=== PATIENT | female | born 2000 | race Caucasian/White ===

== ENCOUNTER 2022-09-08 18:14 | Inpatient (IN) | payer OTHER, SELFPAY ==
--- NOTE | ~2022-09-08 | CT_ITS ---
EXAMINATION: CT SOFT TISSUE NECK WITH CONTRAST CLINICAL INFORMATION: Sore throat, muffled voice, elevated white count, assess for oropharyngeal abscess COMPARISON: None. TECHNIQUE: Following the administration of 60 mL of Omnipaque 350 intravenous contrast, helical imaging was performed in the axial plane with generation of coronal and sagittal reformatted images. This CT examination was performed using dose optimization techniques as appropriate, variously including the following: *Automated exposure control. *Adjustment of mA and/or kV according to patient size (this includes techniques or standardized protocols for targeted exams where dose is matched to indication/reason for exam; i.e. extremities or head). *Use of iterative reconstruction technique. DLP: 697.47 mGy-cm FINDINGS: Suboptimal timing of contrast bolus limits assessment. There is symmetric enlargement of the bilateral palatine tonsils without heterogeneous enhancement to suggest acute tonsillitis. No peritonsillar or retropharyngeal abscess. There is also adenoidal and lingual tonsillar hyperplasia. There is mild perinodal fat stranding within the bilateral deep neck spaces. Multilevel enlarged cervical chain lymph nodes, most pronounced within the retropharyngeal and right greater than left 2A dionicio stations, with level 2A lymph nodes measuring up to 2.4 cm on the right and 2.0 cm on the left. The vocal cords are opposed at time of imaging limiting assessment of the glottis, otherwise the hypopharynx and larynx are unremarkable. The fat planes of the skull base and soft tissues of the nasopharynx are unremarkable. Moderate mucosal disease within the right sphenoid sinus with opacified right sphenoid sinus ostium and the retention cyst/polyp in the posterior most right ethmoid air cell. Mild mucosal disease within the left greater than right maxillary sinus alveolar recesses. No mastoid effusion. The temporomandibular joints are normal. Small torus palatini. The submandibular and parotid glands are normal. The thyroid gland is normal. The partially visualized lung apices are clear. Midportion of the innominate and left common carotid arteries with grossly normal contrast opacification of the major neck vessels. The osseous structures are intact without suspicious focal lesion. The imaged portions of the brain parenchyma are unremarkable. CT/CT soft tissue neck w IV con IMPRESSION: Diffuse enlargement of Waldeyer's ring tonsillar tissue, presumably reactive in the setting of underlying infection. No hyperenhancement to suggest acute tonsillitis, noting suboptimal timing of contrast bolus. No peritonsillar or retropharyngeal abscess. Multilevel cervical lymphadenopathy is presumably reactive, however recommend follow-up soft tissue ultrasound to ensure appropriate temporal resolution. There is mild perinodal fat stranding within the bilateral deep neck spaces. Moderate mucosal disease within the right sphenoid sinus with opacified right sphenoid sinus ostium and the retention cyst/polyp in the posteriormost right ethmoid air cell.
[2022-09-08 18:57] VITALS: BP 175/95; PULSE 112; RESP 18; TEMP 36.1; O2SAT 97; BMI 39.2
--- NOTE | 2022-09-08 18:57 | ED.GENADULT ---
HPI - General Adult General Chief complaint: Upper Respiratory Symptoms Stated complaint: swollen tonsils Time Seen by Provider: 09/08/22 21:04 Source: patient Mode of arrival: ambulatory Limitations: no limitations History of Present Illness HPI narrative: Patient comes to the emergency room complaining of 2 weeks of sore throat. Patient states that approximately 2 weeks ago, she was seen at Urgent Care, she was started on Augmentin. Patient completed her course of antibiotics, over last 4 days the sore throat and swelling have gotten worse. Now patient is barely able to eat or drink due to the intense pain. Patient has no difficulty handling oral secretions. No airway compromise. Also, patient developed over the last couple of days a month the papular rash. Of note, patient takes Humira weekly on Saturdays, which she uses for hidradenitis suppurativa. Patient has not taking it for the last 2 weeks due to the current or pharyngeal infection Related Data Allergies Allergy/AdvReac Type Severity Reaction Status Date / Time sulfamethoxazole Allergy Hives Verified 09/08/22 18:56 [From Bactrim] trimethoprim [From Bactrim] Allergy Hives Verified 09/08/22 18:56 Review of Systems Review of Systems: Constitutional : No Weight loss, No Fever, No Chills, No Night Sweats, No Fatigue, No Malaise ENT/Mouth : No Hearing loss, No Ear Pain, No Nasal Congestion, No Sinus Pain, No Hoarseness, complaining of sore throat, enlarged tonsils despite 10 days of Augmentin, No Rhinorrhea, No Swallowing Difficulty Eyes: No Eye Pain, No Swelling, No Redness, No Foreign Body, No Discharge, No Vision Changes Cardiovascular : No Chest Pain, No SOB, No Dyspnea on Exertion, No Orthopnea, No Edema, No Palpitations Respiratory : No Cough, No Sputum, No Wheezing, No Smoke Exposure, No Dyspnea Gastrointestinal : No Nausea, No Vomiting, No Diarrhea, No Constipation, No abdominal Pain, No Hematochezia, No Melena Genitourinary : no irregular bleeding, No Dysuria, No Urinary Frequency, No Hematuria, No Urinary Incontinence, No Urgency, No Flank Pain, No Urinary Flow Changes, No Hesitancy Musculoskeletal : No joint pain, No Myalgias, No Joint Swelling Skin : No Skin Lesions, No rash Neuro : No Weakness, No Numbness, No Paresthesias, No Loss of Consciousness, No Dizziness, No Headache Psych : No Anxiety/Panic, No Depression, No SI/HI/AH/VH, No Social Issues, Heme/Lymph: No Bruising, No Bleeding,No Lymphadenopathy Endocrine : No Polyuria, No Polydipsia, No Temperature Intolerance PMFSH Social History Social History Alcohol intake: never Smoked in Last 30 Days: No Use of substances other than those prescribed or required for medical reasons: No Advance Directives: No Advance Directives Information Provided: No Physical Exam ED Vital Signs: Vital Signs - 24 hr 09/08/22 18:57 09/08/22 21:34 09/08/22 22:43 Temperature 96.9 F 98.3 F Pulse Rate 112 H 102 H Respiratory Rate 18 19 Blood Pressure 175/95 H 155/83 H Pulse Oximetry 97 99 95 Oxygen Delivery Method Room Air Room Air BMI result Body Mass Index 39.2 Const Other: Appearance: Alert. Oriented X3. No acute distress. Eyes: Pupils equal, round and reactive to light. ENT: Pharynx large bilateral tonsils, no obvious exudates or abscess Neck: Normal inspection. Neck supple. No lymph nodes noted. No crepitus CVS: Normal heart rate and rhythm. Pulses normal. Normal S1 and S2 Respiratory: No respiratory distress. Breath sounds normal. No Wheezing. No rales Abdomen: Soft and nontender. No rigidity. No distention. Skin: Skin warm and dry. Patient has some maculopapular rash diffusely Extremities: No lower extremity edema. No Lacerations. No Rash Neuro: Oriented X 3. No motor deficit. No sensory deficit. Moving all extremities. No slurred speech. CN 2 through 12 grossly intact Psych: calm, cooperative, normal affect Course Course Course Narrative: This is an RME: Additional HPI, ROS, PE not included below will be deferred to primary provider. [id number], with a history of hidradenitis suppurativa, presenting to the emergency department with complaints of swollen tonsils, productive cough, body aches x 2 weeks. Seen by urgent care, was on amoxicillin 10 days finished on sunday/sunday and prednisone 3 days. She broke out in a diffusely intermittently itchy rash on sunday/sun of this week. She was seen by urgent care just prior to her arrival and was advised to go to the emergency department for further workup. Patient was tested for mono last week which was negative. Patient has macular rash to her right neck. Plan: Repeat strep, basic blood work, Monospot Medications Administered Discontinued Medications Generic Name Dose Route Start Last Admin Trade Name Marcos PRN Reason Stop Dose Admin Dexamethasone Sodium Phosphate 6 mg 09/08/22 21:11 09/08/22 21:30 Dexamethasone Sod Phosphate 4 Mg/Ml Vial IVPUSH 09/08/22 21:12 6 mg ONCE ONE Administration Sodium Chloride 1,000 mls @ 999 mls/hr 09/08/22 21:11 09/08/22 22:32 Ns IVCONT 09/08/22 22:11 Infused .Q1H1M ONE Infusion Clindamycin Phosphate 300 mg in 50 mls @ 100 mls/hr 09/08/22 21:11 09/08/22 22:08 Cleocin IV 09/08/22 21:40 Infused ONCE ONE Infusion Iohexol 100 ml 09/08/22 22:18 09/08/22 22:18 Iohexol 350 Mg/Ml 100 Ml Infus..Btl IV 09/08/22 22:19 60 ml ONCE ONE Administration Medical Decision Making Medical Decision Making [facility] Narrative: -patient failed outpatient treatment with amoxicillin, likely developed a rash secondary to the medication -patient's white blood cell count is 17.5, has muffled voice, we will go ahead and order a CT scan to rule out abscesses in the ER pharynx -patient a bit tachycardic, heart rate 112, no fever, patient started on IV fluids, clindamycin and Decadron IV -my interpretation of CT scan, there is narrowing of the airway. Clinically, patient has no airway compromise -I also spoke with Dr. Cespedes from [facility], patient has tonsillar hyperplasia, this could possibly be tonsillitis -patient is up-to-date with her immunizations. Since we do not have a clear diagnosis, we will go ahead and test for mumps -I discussed the CT findings with the patient, there are no drainable abscesses. However, we will admit the patient for IV antibiotics, fluids -I discussed the patient with Dr. Golden, pt being admitted Admission/Observation Consideration of admission/observation: Escalation of care including admission/observation considered Consult Healthcare Provider Management of the patient was discussed with: Hospitalist Lab Data [facility] Lab Attestation statement: I reviewed the patient's lab results. 09/08/22 19:14 09/08/22 19:14 Labs: Lab Results 09/08/22 09/08/22 09/08/22 Range/Units 19:14 19:14 19:14 WBC 17.5 H (4.8-10.8) X10*3/uL RBC 5.23 (4.20-5.50) X10*6/uL Hgb 15.0 (12.0-16.0) g/dl Hct 43.7 (37.0-47.0) % MCV 83.6 (80.0-98.0) fL MCH 28.7 (27.0-33.0) pg MCHC 34.3 (31.0-35.0) g/dl RDW 12.0 (11.0-16.0) % Plt Count 288 (160-400) X10*3/uL MPV 9.7 (9.4-12.3) fL Immature Gran % (Auto) 0.4 (0.0-0.4) % Neut % (Auto) 86.8 H (45-73) % Lymph % (Auto) 9.8 L (20-40) % [place] % (Auto) 2.4 (2-11) % Eos % (Auto) 0.3 (0-4) % Baso % (Auto) 0.3 (0-2) % Lymph # (Auto) 1.7 (1.2-4.9) X10*3/uL [place] # (Auto) 0.4 (0.1-1.2) X10*3/uL Eos # (Auto) 0.1 (0.0-0.4) X10*3/uL Baso # (Auto) 0.1 (0.0-0.2) X10*3/uL Abs Immat Gran (auto) 0.07 H (0.00-0.03) X10*3/uL Absolute Neuts (auto) 15.2 H (2.0-8.3) x10*3/uL Absolute Nucleated RBC 0.000 (0.0-0.012) X10*3/uL Nucleated RBC % (auto) 0.0 (0.0-0.2) /100WBC Sodium 140 (135-145) mmol/L Potassium 3.8 (3.3-5.1) mmol/L Chloride 108 (96-108) mmol/L Carbon Dioxide 22 (22-29) mmol/L Anion Gap 14 (12-20) BUN 12 (9-16) mg/dL Creatinine 0.92 (0.5-1.4) mg/dL Estim Creat Clear Calc 126.7 Estimated GFR > 60 Random Glucose 108 (60-115) mg/dL Calcium 9.7 (8.4-10.2) mg/dL Monoscreen (Negative) Influenza Type A (PCR) (Negative) Influenza Type B (PCR) (Negative) RSV RNA Qual (PCR) (Negative) SARS-CoV-2 RNA (RT-PCR) (Negative) S. pyogenes GrpA KAMILA Negative (Negative) 09/08/22 09/08/22 Range/Units 19:15 19:15 WBC (4.8-10.8) X10*3/uL RBC (4.20-5.50) X10*6/uL Hgb (12.0-16.0) g/dl Hct (37.0-47.0) % MCV (80.0-98.0) fL MCH (27.0-33.0) pg MCHC (31.0-35.0) g/dl RDW (11.0-16.0) % Plt Count (160-400) X10*3/uL MPV (9.4-12.3) fL Immature Gran % (Auto) (0.0-0.4) % Neut % (Auto) (45-73) % Lymph % (Auto) (20-40) % [place] % (Auto) (2-11) % Eos % (Auto) (0-4) % Baso % (Auto) (0-2) % Lymph # (Auto) (1.2-4.9) X10*3/uL [place] # (Auto) (0.1-1.2) X10*3/uL Eos # (Auto) (0.0-0.4) X10*3/uL Baso # (Auto) (0.0-0.2) X10*3/uL Abs Immat Gran (auto) (0.00-0.03) X10*3/uL Absolute Neuts (auto) (2.0-8.3) x10*3/uL Absolute Nucleated RBC (0.0-0.012) X10*3/uL Nucleated RBC % (auto) (0.0-0.2) /100WBC Sodium (135-145) mmol/L Potassium (3.3-5.1) mmol/L Chloride (96-108) mmol/L Carbon Dioxide (22-29) mmol/L Anion Gap (12-20) BUN (9-16) mg/dL Creatinine (0.5-1.4) mg/dL Estim Creat Clear Calc Estimated GFR Random Glucose (60-115) mg/dL Calcium (8.4-10.2) mg/dL Monoscreen Negative (Negative) Influenza Type A (PCR) NEGATIVE (Negative) Influenza Type B (PCR) NEGATIVE (Negative) RSV RNA Qual (PCR) NEGATIVE (Negative) SARS-CoV-2 RNA (RT-PCR) NEGATIVE (Negative) S. pyogenes GrpA KAMILA (Negative) Radiology Impression Discussion of test interpretation with radiology: I have reviewed the radiologist's reading. Radiologist Impression: FINDINGS: Suboptimal timing of contrast bolus limits assessment. There is symmetric enlargement of the bilateral palatine tonsils without heterogeneous enhancement to suggest acute tonsillitis. No peritonsillar or retropharyngeal abscess. There is also adenoidal and lingual tonsillar hyperplasia. There is mild perinodal fat stranding within the bilateral deep neck spaces. Multilevel enlarged cervical chain lymph nodes, most pronounced within the retropharyngeal and right greater than left 2A dionicio stations, with level 2A lymph nodes measuring up to 2.4 cm on the right and 2.0 cm on the left. The vocal cords are opposed at time of imaging limiting assessment of the glottis, otherwise the hypopharynx and larynx are unremarkable. The fat planes of the skull base and soft tissues of the nasopharynx are unremarkable.? Moderate mucosal disease within the right sphenoid sinus with opacified right sphenoid sinus ostium and the retention cyst/polyp in the posterior most right ethmoid air cell. Mild mucosal disease within the left greater than right maxillary sinus alveolar recesses. No mastoid effusion. The temporomandibular joints are normal. Small torus palatini. The submandibular and parotid glands are normal. The thyroid gland is normal. The partially visualized lung apices are clear. Midportion of the innominate and left common carotid arteries with grossly normal contrast opacification of the major neck vessels. The osseous structures are intact without suspicious focal lesion. The imaged portions of the brain parenchyma are unremarkable. CT/CT soft tissue neck w IV con IMPRESSION: ? Diffuse enlargement of Waldeyer's ring tonsillar tissue, presumably reactive in the setting of underlying infection. No hyperenhancement to suggest acute tonsillitis, noting suboptimal timing of contrast bolus. No peritonsillar or retropharyngeal abscess. Multilevel cervical lymphadenopathy is presumably reactive, however recommend follow-up soft tissue ultrasound to ensure appropriate temporal resolution. There is mild perinodal fat stranding within the bilateral deep neck spaces. ? Moderate mucosal disease within the right sphenoid sinus with opacified right sphenoid sinus ostium and the retention cyst/polyp in the posteriormost right ethmoid air cell. Critical Care Time Critical Care Time Critical Care Time: Yes Total Critical Care Time: 60 Attestation: I have personally provided critical care time. Time includes review of lab data, radiology results, discussion with consultants, and monitoring for potential decompensation. Intervention performed as documented. Discharge Plan Discharge Clinical Impression: Acute tonsillitis Patient Disposition: Admitted As Inpatient
[2022-09-08 19:20] LABS: MANUAL DIFF FLAG NO
[2022-09-08 19:27] LABS: Basophils Absolute Auto 0.1 X10*3/uL (0.0-0.2); Basophils Percent Auto 0.3 % (0-2); Eosinophils Absolute Auto 0.1 X10*3/uL (0.0-0.4); Eosinophils Percent Auto 0.3 % (0-4); Hematocrit 43.7 % (37.0-47.0); Imm Gran Abs Auto 0.07 X10*3/uL (0.00-0.03); Imm Gran Pct Auto 0.4 % (0.0-0.4); Lymphocytes Absolute Auto 1.7 X10*3/uL (1.2-4.9); Lymphocytes Percent Auto 9.8 % (20-40); Mean Corpuscular HGB Conc 34.3 g/dl (31.0-35.0); Mean Corpuscular Hemoglobin 28.7 pg (27.0-33.0); Mean Corpuscular Volume 83.6 fL (80.0-98.0); Mean Platelet Volume 9.7 fL (9.4-12.3); Monocytes Absolute Auto 0.4 X10*3/uL (0.1-1.2); Monocytes Percent Auto 2.4 % (2-11); Neutrophils Absolute Auto 15.2 x10*3/uL (2.0-8.3); Neutrophils Percent Auto 86.8 % (45-73); Platelet Count 288 X10*3/uL (160-400); Red Blood Count 5.23 X10*6/uL (4.20-5.50); White Blood Count 17.5 X10*3/uL (4.8-10.8)
[2022-09-08 19:34] LABS: Anion Gap 14 (12-20); Blood Urea Nitrogen 12 mg/dL (9-16); Calcium 9.7 mg/dL (8.4-10.2); Carbon Dioxide 22 mmol/L (22-29); Chloride 108 mmol/L (96-108); Creatinine Clr Calc Pharmacy 126.7; Estimated Glomerular Filt Rate > 60; Glucose Random 108 mg/dL (60-115); Potassium 3.8 mmol/L (3.3-5.1); Sodium 140 mmol/L (135-145)
[2022-09-08 19:41] LABS: Monotest Negative (Negative)
[2022-09-08 19:53] LABS: IDNOW Serial# 6674DD1D; Strep A Nucleic Acid Negative (Negative)
[2022-09-08 21:17] LABS: Influenza A PCR NEGATIVE (Negative); Influenza B PCR NEGATIVE (Negative); Resp Syncy Virus RNA Qual PCR NEGATIVE (Negative); SARS COV2 PCR INHOUSE NEGATIVE (Negative)
[2022-09-08] MEDS: Clindamycin Phosphate/D5W 300 MG/50 ML PIGGYBACK 100 MG IV (21:30)
[2022-09-08] MEDS: 0.9 % Sodium Chloride 1,000 ML 999 ML IVCONT (21:30)
[2022-09-08] MEDS: dexAMETHasone sod phosphate 4 MG/ML VIAL 6 MG IVPUSH (21:30)
[2022-09-08 21:34] VITALS: O2SAT 99
[2022-09-08] MEDS: iohexoL 350 MG/ML 100 ML INFUS..BTL IV (22:18)
[2022-09-08 22:43] VITALS: BP 155/83; PULSE 102; RESP 19; TEMP 36.8; O2SAT 95
--- NOTE | 2022-09-08 22:58 | PM.IMHP ---
History of Present Illness Date of Service: 09/08/22 Chief Complaint: Sore throat This is a 22-year-old female with pertinent history of mood disorder, hidradenitis suppurativa who presents to the emergency department for evaluation of sore throat. Patient states she started having sore throat about 2 weeks prior to presentation. It was associated with generalized body ache and malaise. Patient went to urgent care about 10 days ago and was prescribed amoxicillin. Patient completed her ten-day course of amoxicillin but continued to have sore throat. Patient states on the day of presentation, she had severe throat ache with difficulty swallowing food. She went to the urgent care again and was sent to the ER for further evaluation. Patient denies fever, chills, chest discomfort, palpitations, nausea, vomiting, shortness of breath, abdominal pain, changes in urinary or bowel habits. In the emergency department, patient was found to be septic. Review of Systems Constitutional: Constitutional: Reports lethargy and Reports malaise ENT: Reports dysphagia and Reports sore throat Cardiovascular: Cardiovascular: Reports no additional cardiovascular complaints Respiratory: Respiratory: Reports no additional respiratory complaints Gastrointestinal: Gastrointestinal: Reports no additional gastrointestinal complaints and Reports dysphagia Genitourinary: Genitourinary: Reports no additional female genitourinary complaints [facility] Medical History Hidradenitis suppurativa Mood disorder Pertinent family history: no family history of early CAD Social History Alcohol intake: never Smoked in Last 30 Days: No Use of substances other than those prescribed or required for medical reasons: No Advance Directives: No Advance Directives Information Provided: No Meds Allergies Allergy/AdvReac Type Severity Reaction Status Date / Time sulfamethoxazole Allergy Hives Verified 09/08/22 18:56 [From Bactrim] trimethoprim [From Bactrim] Allergy Hives Verified 09/08/22 18:56 Home Medications Medication Instructions Recorded Confirmed Last Taken Type sertraline 50 mg tablet 50 mg PO DAILY 09/08/22 09/08/22 09/07/22 History Physical Exam Vital Signs and Narrative: Vital Signs: Last Vital Signs Temp 98.3 F 09/08/22 22:43 Pulse 102 H 09/08/22 22:43 Resp 19 09/08/22 22:43 BP 155/83 H 09/08/22 22:43 Pulse Ox 95 09/08/22 22:43 O2 Del Method Room Air 09/08/22 22:43 BMI result Body Mass Index 39.2 Middle-aged female lying in bed in mild distress Neck supple, no JVD, swollen tonsils + Tachycardic with regular rhythm, S1-S2 heard Regular breath sounds bilaterally, no wheezing or crackles appreciated Abdomen soft nontender, no guarding, no rigidity Patient is awake, alert and oriented to self, place, time and person ; no focal motor deficit Psych: Normal mood No pedal edema Results Labs 09/08/22 19:14 09/08/22 19:14 Labs: Laboratory Results - last 24 hr 09/08/22 09/08/22 09/08/22 19:14 19:14 19:14 MCV 83.6 MCH 28.7 MCHC 34.3 RDW 12.0 Plt Count 288 MPV 9.7 Immature Gran % (Auto) 0.4 Neut % (Auto) 86.8 H Lymph % (Auto) 9.8 L [place] % (Auto) 2.4 Eos % (Auto) 0.3 Baso % (Auto) 0.3 Lymph # (Auto) 1.7 [place] # (Auto) 0.4 Eos # (Auto) 0.1 Baso # (Auto) 0.1 Abs Immat Gran (auto) 0.07 H Absolute Neuts (auto) 15.2 H Absolute Nucleated RBC 0.000 Nucleated RBC % (auto) 0.0 Anion Gap 14 Estim Creat Clear Calc 126.7 Estimated GFR > 60 Random Glucose 108 Calcium 9.7 Monoscreen Influenza Type A (PCR) Influenza Type B (PCR) RSV RNA Qual (PCR) SARS-CoV-2 RNA (RT-PCR) S. pyogenes GrpA KAMILA Negative 09/08/22 09/08/22 19:15 19:15 MCV MCH MCHC RDW Plt Count MPV Immature Gran % (Auto) Neut % (Auto) Lymph % (Auto) [place] % (Auto) Eos % (Auto) Baso % (Auto) Lymph # (Auto) [place] # (Auto) Eos # (Auto) Baso # (Auto) Abs Immat Gran (auto) Absolute Neuts (auto) Absolute Nucleated RBC Nucleated RBC % (auto) Anion Gap Estim Creat Clear Calc Estimated GFR Random Glucose Calcium Monoscreen Negative Influenza Type A (PCR) NEGATIVE Influenza Type B (PCR) NEGATIVE RSV RNA Qual (PCR) NEGATIVE SARS-CoV-2 RNA (RT-PCR) NEGATIVE S. pyogenes GrpA KAMILA Imaging Radiologist's Impressions: Impressions Soft Tissue Neck CT 09/08/22 22:19 IMPRESSION: Diffuse enlargement of Waldeyer's ring tonsillar tissue, presumably reactive in the setting of underlying infection. No hyperenhancement to suggest acute tonsillitis, noting suboptimal timing of contrast bolus. No peritonsillar or retropharyngeal abscess. Multilevel cervical lymphadenopathy is presumably reactive, however recommend follow-up soft tissue ultrasound to ensure appropriate temporal resolution. There is mild perinodal fat stranding within the bilateral deep neck spaces. Moderate mucosal disease within the right sphenoid sinus with opacified right sphenoid sinus ostium and the retention cyst/polyp in the posteriormost right ethmoid air cell. Assessment and Plan (1) Acute tonsillitis: Status: Acute Plan This is a 22-year-old female with pertinent history of mood disorder, hidradenitis suppurativa who presents to the emergency department for evaluation of sore throat. #. Sepsis due to Acute tonsillitis. Will admit patient as she failed p.o. antibiotics. Initiating empiric IV antibiotics. Resuscitated with IV crystalloids. Blood culture and lactic acid obtained. Brantley screen and strep antigen negative. MRSA nasal screen pending. No peritonsillar abscess #. mood disorder. On Zoloft #. hidradenitis suppurative a. On Humira DVT prophylaxis. None. Patient is ambulatory Full code Regular diet as tolerated Admit as inpatient and will require two night minimum hospital stay for IV antibiotics Time Spent With Patient Time: Total time managing care of this patient today ____ minutes. Quality Stroke Does the patient have a stroke diagnosis?: No VTE Prior VTE?: No VTE Risk Level:: Medical - low VTE Device Contraindication: Treatment Not Indicated VTE Drug Contraindication: Treatment Not Indicated
[2022-09-09] VITALS: BP 168/92; PULSE 98; RESP 18; TEMP 36.2; O2SAT 96
[2022-09-09 00:46] LABS: Lactic Acid 0.9 mmol/L (0.5-2.0)
[2022-09-09] MEDS: Ampicillin Sodium/Sulbactam Na 3 GM in 0.9 % Sodium Chloride 100 ML IV ×5 (00:46→22:33)
--- NOTE | 2022-09-09 01:02 | PC.NURSE ---
Received pt in ED Overflow. Pt presents A&Ox4, GCS 15, independent and ambulatory. Pt complaining of 3/10 pain in her throat/lymph nodes. Pt has a working 20g IV in her right hand, through which she was medicated per MAY. Pt was given a sandwich and water, per request. Pt has no complaints at this time.
[2022-09-09] MEDS: dexAMETHasone sod phosphate 4 MG/ML VIAL IVPUSH (01:23)
[2022-09-09] MEDS: 0.9 % Sodium Chloride Flush 3 ML SYRINGE IVFLUSH ×4 (01:24→20:52)
[2022-09-09] MEDS: traZODone HCL 25 MG HALFTAB PO (02:01)
[2022-09-09 03:21] VITALS: BMI 38.9
[2022-09-09 03:48] VITALS: BP 138/78; PULSE 96; RESP 16; TEMP 37.1; O2SAT 97
[2022-09-09 06:38] LABS: Basophils Percent Auto 0.1 % (0-2); Hematocrit 42.5 % (37.0-47.0); Hemoglobin 14.7 g/dl (12.0-16.0); Imm Gran Abs Auto 0.08 X10*3/uL (0.00-0.03); Imm Gran Pct Auto 0.6 % (0.0-0.4); Lymphocytes Percent Auto 7.7 % (20-40); MANUAL DIFF FLAG SCAN; Mean Corpuscular HGB Conc 34.6 g/dl (31.0-35.0); Mean Corpuscular Hemoglobin 29.2 pg (27.0-33.0); Mean Corpuscular Volume 84.3 fL (80.0-98.0); Mean Platelet Volume 10.1 fL (9.4-12.3); Monocytes Absolute Auto 0.1 X10*3/uL (0.1-1.2); Monocytes Percent Auto 0.6 % (2-11); Neutrophils Absolute Auto 11.9 x10*3/uL (2.0-8.3); Platelet Count 280 X10*3/uL (160-400); Red Blood Count 5.04 X10*6/uL (4.20-5.50); Red Cell Distribution Width 11.9 % (11.0-16.0); SCAN SMEAR FLAG 1; White Blood Count 13.1 X10*3/uL (4.8-10.8)
[2022-09-09 07:08] LABS: SLIDE REVIEW VERIFIED
[2022-09-09 07:19] LABS: Anion Gap 13 (12-20); Blood Urea Nitrogen 10 mg/dL (9-16); Calcium 9.7 mg/dL (8.4-10.2); Carbon Dioxide 21 mmol/L (22-29); Chloride 110 mmol/L (96-108); Creatinine Clr Calc Pharmacy 141.4; Estimated Glomerular Filt Rate > 60; Glucose Random 188 mg/dL (60-115); Potassium 4.4 mmol/L (3.3-5.1); Sodium 140 mmol/L (135-145)
[2022-09-09 08:00] VITALS: BP 128/73; PULSE 97; RESP 18; TEMP 36.1; O2SAT 96
[2022-09-09] MEDS: Sertraline HCL 50 MG TABLET PO (09:11)
--- NOTE | 2022-09-09 10:21 | PHA.MEDREC ---
Pharmacy Consult ? Medication Reconciliation Pharmacy has completed the medication reconciliation. spoke with patient. Prescribed Humira every week on Saturdays however she has not had in two weeks due to being sick and is currently on hold.
[2022-09-09 10:33] LABS: MRSA Nasal PCR NEGATIVE (Negative); SA Nasal PCR NEGATIVE (Negative)
--- NOTE | 2022-09-09 11:41 | P.PNIM_ITS ---
Subjective Subjective Date of Service: 09/09/22 Interval History: Notes improvement overnight. Able to swallow food without issue Review of Systems Denies chest pain Denies shortness of breath Denies nausea vomiting diarrhea Denies fever chills Physical Exam Vital Signs: Vital Signs: Last Vital Signs Temp 97 F 09/09/22 08:00 Pulse 97 09/09/22 08:00 Resp 18 09/09/22 08:00 BP 128/73 09/09/22 08:00 Pulse Ox 96 09/09/22 08:00 O2 Del Method Room Air 09/09/22 08:00 BMI result Body Mass Index 38.9 Const: Other: Awake alert no acute distress. Handling secretions well Resp: Other: Clear to auscultation bilaterally no rales rhonchi or wheezes Cardio: Other: No S4; positive S1-S2; no S3 murmurs rubs or gallops GI: Other: Soft nontender nondistended normoactive bowel sounds Extrem: Other: No edema bilaterally Objective Data Active Medications Acetaminophen (Acetaminophen 325 Mg Tablet) 650 mg PO Q6H PRN PRN Reason: Pain, Mild (Pain Scale 1-3) Betamethasone Dipropion Augmented (Betamethasone Dip Aug 0.05% Cr 15 Gm Tube) 1 appl TOPICAL BID [facility]; Protocol Ampicillin Sodium/Sulbactam (Sodium 3 gm/ Sodium Chloride) 100 mls @ 200 mls/hr IV Q6H [facility] Last Infusion: 09/09/22 05:08 Dose: 0 mls/hr Documented By: SHILPA Melatonin (Melatonin 3 Mg Tablet) 6 mg PO BEDTIME PRN PRN Reason: Insomnia Ondansetron HCl (Ondansetron Hcl 4 Mg/2 Ml Vial) 4 mg IVPUSH Q8H PRN PRN Reason: Nausea and Vomiting Pharmacy Consult (Consult Rx Perform Med Rec) 1 each MISCELLANE ONCE PRN PRN Reason: Consult order Sertraline HCl (Sertraline Hcl 50 Mg Tablet) 50 mg PO DAILY [facility] Last Admin: 09/09/22 09:11 Dose: 50 mg Documented By: DARIUS Sodium Chloride (0.9 % Sodium Chloride Flush 3 Ml Syringe) 3 ml IVFLUSH QSHIFT [facility] Last Admin: 09/09/22 04:38 Dose: 3 ml Documented By: SHILPA Labs 09/09/22 06:06 09/09/22 06:06 Labs: Laboratory Results - last 24 hr 09/08/22 09/08/22 09/08/22 19:14 19:14 19:14 MCV 83.6 MCH 28.7 MCHC 34.3 RDW 12.0 Plt Count 288 MPV 9.7 Immature Gran % (Auto) 0.4 Neut % (Auto) 86.8 H Lymph % (Auto) 9.8 L [place] % (Auto) 2.4 Eos % (Auto) 0.3 Baso % (Auto) 0.3 Lymph # (Auto) 1.7 [place] # (Auto) 0.4 Eos # (Auto) 0.1 Baso # (Auto) 0.1 Abs Immat Gran (auto) 0.07 H Absolute Neuts (auto) 15.2 H Absolute Nucleated RBC 0.000 Nucleated RBC % (auto) 0.0 Smear Tech's Comments Anion Gap 14 Estim Creat Clear Calc 126.7 Estimated GFR > 60 Random Glucose 108 Lactic Acid Calcium 9.7 Nasal Screen MRSA (PCR) Nasal S. aureus Screen Nasal MRSA/S.aureus Interp Monoscreen Influenza Type A (PCR) Influenza Type B (PCR) RSV RNA Qual (PCR) SARS-CoV-2 RNA (RT-PCR) S. pyogenes GrpA KAMILA Negative 09/08/22 09/08/22 09/09/22 19:15 19:15 00:30 MCV MCH MCHC RDW Plt Count MPV Immature Gran % (Auto) Neut % (Auto) Lymph % (Auto) [place] % (Auto) Eos % (Auto) Baso % (Auto) Lymph # (Auto) [place] # (Auto) Eos # (Auto) Baso # (Auto) Abs Immat Gran (auto) Absolute Neuts (auto) Absolute Nucleated RBC Nucleated RBC % (auto) Smear Tech's Comments Anion Gap Estim Creat Clear Calc Estimated GFR Random Glucose Lactic Acid 0.9 Calcium Nasal Screen MRSA (PCR) Nasal S. aureus Screen Nasal MRSA/S.aureus Interp Monoscreen Negative Influenza Type A (PCR) NEGATIVE Influenza Type B (PCR) NEGATIVE RSV RNA Qual (PCR) NEGATIVE SARS-CoV-2 RNA (RT-PCR) NEGATIVE S. pyogenes GrpA KAMILA 09/09/22 09/09/22 09/09/22 03:50 06:06 06:06 MCV 84.3 MCH 29.2 MCHC 34.6 RDW 11.9 Plt Count 280 MPV 10.1 Immature Gran % (Auto) 0.6 H Neut % (Auto) 91.0 H Lymph % (Auto) 7.7 L [place] % (Auto) 0.6 L Eos % (Auto) 0.0 Baso % (Auto) 0.1 Lymph # (Auto) 1.0 L [place] # (Auto) 0.1 Eos # (Auto) 0.0 Baso # (Auto) 0.0 Abs Immat Gran (auto) 0.08 H Absolute Neuts (auto) 11.9 H Absolute Nucleated RBC 0.000 Nucleated RBC % (auto) 0.0 Smear Tech's Comments VERIFIED Anion Gap 13 Estim Creat Clear Calc 141.4 Estimated GFR > 60 Random Glucose 188 H Lactic Acid Calcium 9.7 Nasal Screen MRSA (PCR) NEGATIVE Nasal S. aureus Screen NEGATIVE Nasal MRSA/S.aureus Interp SEE NOTE Monoscreen Influenza Type A (PCR) Influenza Type B (PCR) RSV RNA Qual (PCR) SARS-CoV-2 RNA (RT-PCR) S. pyogenes GrpA KAMILA Assessment and Plan (1) Acute tonsillitis: Status: Acute Plan This is a 22-year-old female with pertinent history of mood disorder, hidradenitis suppurativa who presents to the emergency department for evaluation of sore throat/tonsillitis that has failed outpatient therapies 1.Sepsis due to Acute tonsillitis. (sepsis resolved) -continue Unasyn times 24 hours -1 additional dose of Decadron this a.m. -hopeful DC in a.m. ambulatory Full code Patient will require ongoing hospitalization for IV antibiotics to treat tonsillitis that has failed outpatient therapies Time Spent With Patient Time: Total time managing care of this patient today ____ minutes. Quality Stroke Does the patient have a stroke diagnosis?: No VTE Prior VTE?: No VTE Risk Level:: Medical - low VTE Device Contraindication: Treatment Not Indicated VTE Drug Contraindication: Treatment Not Indicated
--- NOTE | 2022-09-09 12:13 | MHC.CM.PN ---
pt is independent no services are needed
[2022-09-09 15:22] VITALS: BP 128/70; PULSE 98; RESP 14; TEMP 36.5; O2SAT 96
[2022-09-09 19:21] VITALS: BP 134/91; PULSE 98; RESP 18; TEMP 36.3; O2SAT 98
[2022-09-09] MEDS: Betamethasone Dip Aug 0.05% Cr 15 GM TUBE 1 APPL TOPICAL (20:51)
[2022-09-09] MEDS: Melatonin 3 MG TABLET 6 MG PO (20:51)
[2022-09-10 03:28] VITALS: BP 129/88; PULSE 91; RESP 18; TEMP 36.1; O2SAT 95
[2022-09-10] MEDS: Ampicillin Sodium/Sulbactam Na 3 GM in 0.9 % Sodium Chloride 100 ML IV (04:40)
[2022-09-10] MEDS: Sertraline HCL 50 MG TABLET PO (07:42)
[2022-09-10] MEDS: 0.9 % Sodium Chloride Flush 3 ML SYRINGE IVFLUSH (07:42)
[2022-09-10] MEDS: Betamethasone Dip Aug 0.05% Cr 15 GM TUBE 1 APPL TOPICAL (07:43)
[2022-09-10 08:00] VITALS: BP 135/79; PULSE 82; RESP 18; TEMP 36.6; O2SAT 97
--- NOTE | 2022-09-10 11:12 | MHC.CM.PN ---
pt dcd home no servceis ordered by
--- NOTE | 2022-09-10 11:16 | P.DS_ITS ---
DS: Providers Provider Date of Service: 09/10/22 Date of admission: 09/08/22 22:57 Date of discharge: 09/10/22 Primary care physician: Unknown Physician DS: Diagnosis Discharge Diagnosis (1) Sepsis: Status: Acute (2) Acute tonsillitis: Status: Acute DS: Summary Hospital Course Hospital Course: 2-year-old female with pertinent history of mood disorder, hidradenitis suppurativa who presents to the emergency department for evaluation of sore throat.? Patient states she started having sore throat about 2 weeks prior to presentation.? It was associated with generalized body ache and malaise.? Patient went to urgent care about 10 days ago and was prescribed amoxicillin.? Patient completed her ten-day course of amoxicillin but continued to have sore throat.? Patient states on the day of presentation, she had severe throat ache with difficulty swallowing food.? She went to the urgent care again and was sent to the ER for further evaluation.? Patient denies fever, chills, chest discomfort, palpitations, nausea, vomiting, shortness of breath, abdominal pain, changes in urinary or bowel habits. Hospital Course Admitted to hospital and started on Unasyn. Received 2 doses of Decadron and over the next 48 hours was tolerating a full diet without complaints of sore throat. At this point time she is medically acceptable discharged on a short course of Augmentin as well as a Decadron taper. She will arrange follow-up the PCP can follow-up at times Time Spent with Patient Time attestation: Total time managing care of this patient today ____ minutes. Discharge coordination time: Greater than 30 minutes Quality: Safe Use of Opioids Does Pt have an Active Cancer Diagnosis on the Problem List?: No Quality: Stroke Does the patient have a stroke diagnosis?: No Physical Exam Vital Signs: Vital Signs: Last Vital Signs Temp 97.9 F 09/10/22 08:00 Pulse 82 09/10/22 08:00 Resp 18 09/10/22 08:00 BP 135/79 09/10/22 08:00 Pulse Ox 97 09/10/22 08:00 O2 Del Method Room Air 09/10/22 08:00 BMI result Body Mass Index 38.9 Const: Other: Awake alert no acute distress. Handling secretions well Resp: Other: Clear to auscultation bilaterally no rales rhonchi or wheezes Cardio: Other: No S4; positive S1-S2; no S3 murmurs rubs or gallops GI: Other: Soft nontender nondistended normoactive bowel sounds Extrem: Other: No edema bilaterally DS: Data Data Completed and Pending Labs on day of discharge: Preliminary micro results at discharge 09/09/22 01:23 Blood Culture - Preliminary Blood - Venous No growth after 24 hours. 09/09/22 01:23 Blood Culture - Preliminary Blood - Venous No growth after 24 hours. Discharge Plan Discharge Anticipated Discharge Date/Time: 09/10/22 10:59 Patient Disposition: Home, Self-Care Discharge Diagnosis: Acute tonsillitis Referrals: Physician,Unknown J [Primary Care Provider] - 1 Week Discharge Medications: New amoxicillin-pot clavulanate 875-125 mg tablet 1 tab PO BID Qty: 14 0RF dexamethasone 1.5 mg tablet 1.5 mg PO DAILY Qty: 18 0RF Rx Instructions: One tab p.o. t.i.d. x3 days; 1 tab p.o. b.i.d. x3 days; 1 tab daily fluconazole [Diflucan] 150 mg tablet 150 mg PO Q3D Qty: 2 0RF Continued sertraline 50 mg tablet 50 mg PO DAILY cetirizine-pseudoephedrine [Zyrtec-D] 5-120 mg Tablet Extended Release 12 Hr 1 tab PO Q12H PRN (Reason: Allergy Symptoms) fluticasone propionate 50 mcg/actuation [place],Suspension 1 spray INTRANASAL DAILY PRN (Reason: Allergy Symptoms) Rx Instructions: administer into each nostril Humira(CF) 40 mg/0.4 mL Syringe Kit 40 mg SUBCUT SA Rx Instructions: saturdays Discharge Orders: Discharge Order (Routine); Ordered 09/10/22 Ordered By: Tony Felipe Diet: Advance to usual diet Activity on Discharge: As tolerated Stand Alone Forms: Patient Portal Discharge page, Work/School Release Care Plan Goals: Complete course of Augmentin/Decadron/Diflucan (if indicated) Health Concerns: Work note to return 09/18/22 Plan of Treatment: Resume all medicines as taking pre-hospital Assessment: See discharge summary
[2022-09-16 18:08] LABS: Mumps Virus IgM Antibody <1:20 titer
== END 2022-09-10 11:37 | disposition home or self-care (01) | DRG 720 ==
LOC: HO.ED 23:14 → HO.EDOVER 23:25 → HO.S3 09-09 03:05
PROVIDERS: Physician Assistant Medical; Admitting Provider Student in an Organized Health Care Education/Training Program; Emergency Provider Emergency Medicine; Visit Provider Hospitalist
DX: A41.9 Sepsis, unspecified organism (principal); F39 Unspecified mood [affective] disorder; J03.90 Acute tonsillitis, unspecified; L73.2 Hidradenitis suppurativa; Z20.822 Contact with and (suspected) exposure to COVID-19; Z79.51 Long term (current) use of inhaled steroids; Z79.899 Other long term (current) drug therapy
CPT/HCPCS: 0241U; 36415; 70491; 80048; 83605; 85025; 86308; 86735; 87040; 87640; 87641; 87651; 99285; J0295; J1100; Q9967

== ENCOUNTER 2022-10-03 08:52 | Emergency (ER) | payer OTHER, SELFPAY ==
[2022-10-03 08:53] VITALS: BP 152/107; PULSE 106; RESP 18; TEMP 36.6; O2SAT 98; BMI 38.0
--- NOTE | 2022-10-03 09:32 | ED.GENADULT ---
HPI - General Adult General Chief complaint: General Medical Stated complaint: Swollen tonsils Time Seen by Provider: 10/03/22 09:31 Source: patient Mode of arrival: ambulatory Limitations: no limitations History of Present Illness HPI narrative: 22 yo female with history of recent admission to [facility] 09/08-09/10 for acute tonsillitis (strep, mono, mumps negative at that time) s/p multiple courses of antibtioics since July who presents to the ER for evaluation of worsening sore throat for the last couple of weeks. She states after discharge she completed a course of antibiotics and steroids. She was feeling well for a week after discharge. She saw ENT in [place] during this time and was found to be positive for Viral Capsid IgG of 104, c/w Fern F[place]ardo Virus. She reports history of mononucleosis at age 15. About a week after stopping the steroids she began having worsening symptoms. She has had a hard time swallowing and her voice is muffled again. She has been taking motrin and tylenol around the clock. She feels dehydrated because she can't drink enough due to pain. She denies fever, chills, N/V/D, chest pain or abdominal pain. MD complaint: sore throat Onset (ago): week(s) Location: mouth and neck Radiation: neck Severity: moderate Severity scale (1-10): 7 Quality: stabbing and aching Pain Consistency: constant Relieving factors: medication Exacerbating factors: eating Associated symptoms: loss of appetite, malaise and weakness Treatments prior to arrival: none Related Data Home Medications Medication Instructions Recorded Confirmed sertraline 50 mg tablet 50 mg PO DAILY 09/08/22 09/08/22 adalimumab 40 mg/0.4 mL 40 mg subcut SA 09/09/22 09/09/22 subcutaneous syringe kit ([place](CF)) cetirizine 5 mg-pseudoephedrine ER 1 tab PO Q12H PRN Allergy Symptoms 09/09/22 09/09/22 120 mg tablet,extended release,12hr (Zyrtec-D) fluticasone propionate 50 1 spray intranasal DAILY PRN 09/09/22 09/09/22 mcg/actuation nasal Allergy Symptoms spray,suspension Previous Rx's Medication Instructions Recorded amoxicillin 875 mg-potassium 1 tab PO BID #14 tabs 09/10/22 clavulanate 125 mg tablet dexamethasone 1.5 mg tablet 1.5 mg PO DAILY #18 tabs 09/10/22 fluconazole 150 mg tablet 150 mg PO Q3D 2 doses #2 tabs 09/10/22 (Diflucan) prednisone 10 mg tablets in a dose See Taper PO DAILY #48 ea 10/03/22 pack Allergies Allergy/AdvReac Type Severity Reaction Status Date / Time sulfamethoxazole Allergy Hives Verified 09/08/22 18:56 [From Bactrim] trimethoprim [From Bactrim] Allergy Hives Verified 09/08/22 18:56 Review of Systems Review of Systems: Yes all other systems are reviewed and are negative [facility] Past Medical History Medical History Hidradenitis suppurativa Mood disorder Social History Social History Household Members: Significant Other Housing: House Do you presently have visiting nurse or other home services: No Alcohol intake: never Patient Tobacco Use Status: Never used Tobacco Smoked in Last 30 Days: No Use of substances other than those prescribed or required for medical reasons: No Advance Directives: No Advance Directives Information Provided: Yes Patient : No service: No Physical Exam ED Vital Signs: Vital Signs - 24 hr 10/03/22 08:53 10/03/22 10:00 Temperature 98 F 98.7 F Pulse Rate 106 H 103 H Respiratory Rate 18 16 Blood Pressure 152/107 H 147/75 H Pulse Oximetry 98 98 Oxygen Delivery Method Room Air Room Air BMI result Body Mass Index 38.0 Appearance: Alert. Oriented X3. No acute distress. Head: normocephalic, atraumatic. Eyes: Pupils equal, round and reactive to light. ENT: Pharynx with moist mucus membranes. + tonsillar swelling bilaterally, mild erythema without exudate, uvula midline. slightly muffled voice, handling secretions normally. Neck: Normal inspection. Neck with bilateral tenderness submandibularly CVS: Normal heart rate and rhythm. Pulses normal. Respiratory: No respiratory distress. Breath sounds normal. Abdomen: Soft and nontender. +BS x4 Skin: Skin warm and dry. Normal skin color. Normal skin turgor. No rashes. Extremities: No lower extremity edema. No joint swelling. Neuro/psych: Oriented X 3. No motor deficit. No sensory deficit. CN II-XII intact. Normal speech and cognition. Medications Administered Discontinued Medications Generic Name Dose Route Start Last Admin Trade Name Marcos PRN Reason Stop Dose Admin Dexamethasone Sodium Phosphate 8 mg 10/03/22 09:42 10/03/22 10:37 Dexamethasone Sod Phosphate 4 Mg/Ml Vial IVPUSH 10/03/22 09:43 8 mg ONCE ONE Administration Sodium Chloride 1,000 mls @ 999 mls/hr 10/03/22 09:45 10/03/22 11:40 Ns IV 10/03/22 10:45 Infused .Q1H1M JUAN Infusion Ketorolac Tromethamine 30 mg 10/03/22 09:42 10/03/22 10:37 Ketorolac Tromethamine 30 Mg/Ml Vial IVPUSH 10/03/22 09:43 30 mg ONCE ONE Administration Medical Decision Making Medical Decision Making MDM Narrative: 22 yo female with recent admission for tonsillitis presents back to the ER for evaluation of sore throat and difficulty swallowing for the last couple of weeks, after she completed a course of steroids. Her tonsils are equally enlarged. Her uvula is midline. She is handling her secretions normally. Her outpatient labs are reviewed. Her IgG G antibody is consistent with acute infection within 2-4 weeks. Her lab workup today showed mild leukocytosis and elevated inflammatory markers c/w viral infection. She was given toradol and decadron with improvement in pain. She is tolerating PO in the ER. Case was d/w Dr. Thornton. Will defer repeat CT soft tissue of the neck viral viral etiology and low suspicion for bacterial abscess. Patient will follow up with ENT and will d/c her on prednisone taper. Stable for d/c and patient agrees w/ plan. Differential Diagnosis Differential Diagnoses: The differential diagnosis associated with the presentation includes viral tonsillitis, peritonsillar abscess, retropharyngeal abscess, strep pharyngitis Admission/Observation Consideration of admission/observation: Escalation of care including admission/observation considered repeat visit for trouble swallowing/tonsillitis. Lab Data [facility] Lab Attestation statement: I reviewed the patient's lab results. mild lleukocytosis 10/03/22 11:08 10/03/22 11:07 Labs: Lab Results 07/04/23 07/04/23 07/04/23 Range/Units 11:07 11:07 11:07 WBC (4.8-10.8) X10*3/uL RBC (4.20-5.50) X10*6/uL Hgb (12.0-16.0) g/dl Hct (37.0-47.0) % MCV (80.0-98.0) fL MCH (27.0-33.0) pg MCHC (31.0-35.0) g/dl RDW (11.0-16.0) % Plt Count (160-400) X10*3/uL MPV (9.4-12.3) fL Immature Gran % (Auto) (0.0-0.4) % Neut % (Auto) (45-73) % Lymph % (Auto) (20-40) % [place] % (Auto) (2-11) % Eos % (Auto) (0-4) % Baso % (Auto) (0-2) % Lymph # (Auto) (1.2-4.9) X10*3/uL [place] # (Auto) (0.1-1.2) X10*3/uL Eos # (Auto) (0.0-0.4) X10*3/uL Baso # (Auto) (0.0-0.2) X10*3/uL Abs Immat Gran (auto) (0.00-0.03) X10*3/uL Absolute Neuts (auto) (2.0-8.3) x10*3/uL Absolute Nucleated RBC (0.0-0.012) X10*3/uL Nucleated RBC % (auto) (0.0-0.2) /100WBC ESR 64 H (0-20) MM/HR Sodium 144 (135-145) mmol/L Potassium 4.1 (3.3-5.1) mmol/L Chloride 111 H (96-108) mmol/L Carbon Dioxide 22 (22-29) mmol/L Anion Gap 15 (12-20) BUN 8 L (9-16) mg/dL Creatinine 0.83 (0.5-1.4) mg/dL Estim Creat Clear Calc 138.0 Estimated GFR > 60 Random Glucose 84 (60-115) mg/dL Calcium 9.8 (8.4-10.2) mg/dL Magnesium 2.1 (1.6-2.6) mg/dL Total Bilirubin 0.8 (0.0-1.0) mg/dL Direct Bilirubin 0.2 (0.0-0.5) mg/dL AST 14 (5-31) U/L ALT 22 (0-31) U/L Alkaline Phosphatase 84 (39-117) U/L C-Reactive Protein 16.83 H (< or = 0.50) mg/dL Total Protein 7.7 (6.5-8.0) g/dL Albumin 4.0 (3.5-5.0) g/dL S. pyogenes GrpA KAMILA Negative (Negative) 10/03/22 Range/Units 11:08 WBC 11.0 H (4.8-10.8) X10*3/uL RBC 4.84 (4.20-5.50) X10*6/uL Hgb 14.2 (12.0-16.0) g/dl Hct 41.5 (37.0-47.0) % MCV 85.7 (80.0-98.0) fL MCH 29.3 (27.0-33.0) pg MCHC 34.2 (31.0-35.0) g/dl RDW 12.7 (11.0-16.0) % Plt Count 205 D (160-400) X10*3/uL MPV 9.4 (9.4-12.3) fL Immature Gran % (Auto) 0.3 (0.0-0.4) % Neut % (Auto) 72.5 (45-73) % Lymph % (Auto) 17.0 L (20-40) % [place] % (Auto) 8.3 (2-11) % Eos % (Auto) 1.5 (0-4) % Baso % (Auto) 0.4 (0-2) % Lymph # (Auto) 1.9 (1.2-4.9) X10*3/uL [place] # (Auto) 0.9 (0.1-1.2) X10*3/uL Eos # (Auto) 0.2 (0.0-0.4) X10*3/uL Baso # (Auto) 0.0 (0.0-0.2) X10*3/uL Abs Immat Gran (auto) 0.03 (0.00-0.03) X10*3/uL Absolute Neuts (auto) 8.0 (2.0-8.3) x10*3/uL Absolute Nucleated RBC 0.000 (0.0-0.012) X10*3/uL Nucleated RBC % (auto) 0.0 (0.0-0.2) /100WBC ESR (0-20) MM/HR Sodium (135-145) mmol/L Potassium (3.3-5.1) mmol/L Chloride (96-108) mmol/L Carbon Dioxide (22-29) mmol/L Anion Gap (12-20) BUN (9-16) mg/dL Creatinine (0.5-1.4) mg/dL Estim Creat Clear Calc Estimated GFR Random Glucose (60-115) mg/dL Calcium (8.4-10.2) mg/dL Magnesium (1.6-2.6) mg/dL Total Bilirubin (0.0-1.0) mg/dL Direct Bilirubin (0.0-0.5) mg/dL AST (5-31) U/L ALT (0-31) U/L Alkaline Phosphatase (39-117) U/L C-Reactive Protein (< or = 0.50) mg/dL Total Protein (6.5-8.0) g/dL Albumin (3.5-5.0) g/dL S. pyogenes GrpA KAMILA (Negative) Independent Historian Clinical information obtained from an independent historian. History obtained from or confirmed by: Parent External Record Review External record reviewed: Inpatient record, Office record, Outpatient record and Prior outpatient labs Tests considered The following testing was considered but not selected: CT soft tissue of the neck Prescription Management I considered prescription management with: Pain Medication and Antibiotic Discharge Plan Discharge Clinical Impression: Acute tonsillitis Patient Disposition: Home, Self-Care Instructions: Tonsillitis (ED) Additional Instructions: Take the prescribed steroid taper as directed. Complete the entire course and do not miss any doses. Use warm salt water gargles several times per day. Recommend Chloraseptic spray or Cepacol lozenges as needed for sore throat. Follow up with ENT. If you develop new or worsening symptoms call 911 or come back to the ER for further evaluation. Prescriptions: New prednisone 10 mg tablets,dose pack See Taper PO DAILY Qty: 48 0RF Taper: Prednisone 50 mg daily for 3 Days and 0 Hour 40 mg daily for 3 Days and 0 Hour 30 mg daily for 3 Days and 0 Hour 20 mg daily for 3 Days and 0 Hour 10 mg daily for 3 Days and 0 Hour No Action sertraline 50 mg tablet 50 mg PO DAILY cetirizine-pseudoephedrine [Zyrtec-D] 5-120 mg Tablet Extended Release 12 Hr 1 tab PO Q12H PRN (Reason: Allergy Symptoms) fluticasone propionate 50 mcg/actuation [place],Suspension 1 spray INTRANASAL DAILY PRN (Reason: Allergy Symptoms) Rx Instructions: administer into each nostril Humira(CF) 40 mg/0.4 mL Syringe Kit 40 mg SUBCUT SA Rx Instructions: saturdays amoxicillin-pot clavulanate 875-125 mg tablet 1 tab PO BID Qty: 14 0RF dexamethasone 1.5 mg tablet 1.5 mg PO DAILY Qty: 18 0RF Rx Instructions: One tab p.o. t.i.d. x3 days; 1 tab p.o. b.i.d. x3 days; 1 tab daily fluconazole [Diflucan] 150 mg tablet 150 mg PO Q3D Qty: 2 0RF Referrals: Siomara Solorzano CNP [Primary Care Provider] - Stand Alone Forms: Work/School Release Interventions: ED Discharge Assessment Last Done: 10/03/22 12:40 Discharge Date/Time: 10/03/22 12:41
[2022-10-03 10:00] VITALS: BP 147/75; PULSE 103; RESP 16; TEMP 37.1; O2SAT 98
== END 2022-10-03 12:41 | disposition home or self-care (01) ==
PROVIDERS: Emergency Provider Emergency Medicine Emergency Medical Services; PCP Nurse Practitioner Family
DX: J03.90 Acute tonsillitis, unspecified (principal)
CPT/HCPCS: 80048; 80076; 83735; 85025; 85652; 86140; 87651; 96361; 96374; 96375; 99284; J1100; J1885

== ENCOUNTER 2022-11-03 11:03 | Outpatient (AMB) | payer OTHER, SELFPAY ==
--- NOTE | 2022-11-03 11:07 | MHC.PC.OV ---
Vital Signs 11/03/22 11:10 Height 5 ft 8 in Weight 260 lb BMI 39.5 BP 130/74 Blood Pressure Location Rt brachial Position Sitting Pulse 110 H Pulse Source Pulse Oximeter Pulse Oximetry (%) 98 Intake Visit Reasons: New patient-Skin condition Intake Note: pt is here for new patient, to establish care and concern skin cond Hair Cutter Required: No Accompanied by: Self / Same As Patient Allergies sulfamethoxazole [From Bactrim] Allergy (Verified 11/03/22 11:44) Hives trimethoprim [From Bactrim] Allergy (Verified 11/03/22 11:44) Hives Tobacco use date assessed: 11/03/22 Dental Screening Dental Screen Date: 11/03/22 Did you have a dental visit in the last 12 months?: No Did you have a dental problem in the last 6 months where you did not have access to dental care?: No Was dental information given to patient?: Yes HPI HPI Comments History of Present Illness Details 22-year-old female presents to establish care She was last evaluated by her former PCP over a year ago. She has not had routine blood work in a while She reports h/o anxiety for which she was on Sertraline. She stopped taking the medication 1 month ago because it was not effective. She denies h/o depression. However, she notes symptoms of low energy, low self worth, easily irritable, and trouble staying asleep. She was followed by a psychiatrist via telehealth. He stopped the visits because she did not feel connected. She reports hydradenitis suppurativa for which she takes Humira. She states the rash usually occur in her armpits, groins, genitals, and buttocks. She currently has two small rash in her left armpit. She is followed by Dematology in [place]. She notes she was hospitalized in August for 2 days for mono. CBC was done. [facility] Medical History (Updated 11/03/22 @ 12:05 by Siomara Solorzano CNP) Hidradenitis suppurativa Mood disorder Surgical History (Updated 11/03/22 @ 11:13 by Ben Martinez CMA) S/P wisdom tooth extraction Family History (Updated 11/03/22 @ 11:15 by Ben Martinez CMA) Father Substance abuse Mother Hypothyroidism Social History (Updated 11/03/22 @ 11:15 by Ben Martinez CMA) Household Members: Significant Other Housing: House Do you presently have visiting nurse or other home services: No Alcohol intake: current Alcohol intake frequency: a few times a month Alcohol type: beer Patient Tobacco Use Status: Never used Tobacco e-Cigarette/Vaping Use: Never Used service: No Current occupational status: employed 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 1. Little interest or pleasure in doing things: several days 2. Feeling down, depressed, or hopeless: several days 3. Trouble falling or staying asleep, or sleeping too much: nearly every day 4. Feeling tired or having little energy: nearly every day 5. Poor appetite or overeating: nearly every day 6. Feeling bad about yourself - or that you are a failure or have let yourself or your family down: several days 7. Trouble concentrating on things, such as reading the newspaper or watching television: not at all 8. Moving or speaking so slowly that other people could have noticed. Or the opposite - being so fidgety or restless that you have been moving around a lot more than usual: not at all 9. Thoughts that you would be better off or of hurting yourself in some way: not at all Total score: 12 Depression Screening Interpretation: Positive 21493 - PHQ-9 Billing: Yes Source: Developed by Drs. Franck Chandler, Meeta Maldonado, Nitin Ordoñez and colleagues, with an educational eugenio from [employer]. Thrive Questionnaire Date Thrive assessed: 11/03/22 I am a: Patient What is your living situation today?: I choose not to answer this question Within the past 12 months, did the food you bought not last and you didn't have the money to get more?: Never true Within the past 12 months, did you worry whether your food would run out before you got money to buy more?: Never true Do you have trouble paying for medicines?: No Do you have trouble getting transportation to medical appointments?: No Do you have trouble paying your heating and electricity bill?: No Do you have trouble taking care of your child, family member or friend?: No Do you have trouble with day-to-day activities such as bathing, preparing meals, shopping, managing finances, etc.?: No Are you currently unemployed and looking for a job?: No Are you interested in more education?: No Please select the resources that you would like help with: None Currently or been in a relationship where the following occur: no concerns reported AUDIT C Alcohol Use Questionnaire (AUDIT-C) 1. How often do you have a drink containing alcohol?: 2-4 times a month 2. How many drinks containing alcohol do you have on a typical day when you are drinking?: 1 or 2 3. How often do you have six or more drinks on one occasion?: Never Total Score: 2 ISABEL-7 AMB Questionnaire ISABEL-7 Date ISABEL - 7 assessed: 11/03/22 Feeling nervous, anxious, or on edge: 2 = More than half the days Not being able to stop or control worryin = More than half the days Worrying too much about different things: 2 = More than half the days Trouble relaxin = More than half the days Being so restless that it is hard to sit still: 1 = Several days Becoming easily annoyed or irritable: 3 = Nearly every day Feeling afraid as if something awful might happen: 1 = Several days Total ISABEL-7 score (0-4 normal; 5-9 mild; 10-14 moderate; 15-21 severe): 13 Source: Developed by Drs. Franck Chandler, Meeta Maldonado, Nitin Ordoñez and colleagues, with an educational eugenio from [employer]. ISABEL-7 Assessment Billing ISABEL-7 Assessment Tool: ISABEL-7 Assessment 89852 Review of Systems Const Details: Const Denies chills, Denies fatigue, Denies fever(s), Denies headache(s) and Denies weakness ENT Denies dizziness and Denies headache(s) Card Denies chest pain, Denies lightheadedness, Denies dyspnea and Denies other (Palpitations) Resp Denies cough, Denies dyspnea, Denies wheezing and Denies other ( shortness of breath) GI Denies abdominal pain, Denies melena, Denies hematochezia, Denies change in bowel habits, Denies dyspepsia and Denies nausea Denies hematuria and Denies dysuria Musc Denies abnormal gait, Denies myalgias, Denies arthralgias, Denies numbness and Denies tingling Skin/Breast Reports rash, Denies unusual bruising and Denies wounds Neuro Denies abnormal gait, Denies dizziness, Denies headache(s), Denies memory loss, Denies numbness, Denies Sensory deficit (Neuro), Denies tingling and Denies weakness Psych Reports anxiety and Reports depression, denies memory loss Endo Denies cold intolerance, Denies fatigue, Denies heat intolerance, Denies polydipsia and Denies polyuria Aller/Immun Denies wheezing Physical exam (Primary Care) Vital Signs: Last Vital Signs Pulse 110 H 11/03/22 11:10 BP 130/74 11/03/22 11:10 Pulse Ox 98 11/03/22 11:10 BMI result Body Mass Index 39.5 Tobacco/Smoking Status: Tobacco use Status Tobacco use date assessed 11/03/22 11/03/22 11:21 Patient Tobacco Use Status Never used Tobacco 11/03/22 11:15 e-Cigarette/Vaping Use Never Used 11/03/22 11:21 PHQ-9: PHQ-9 Score PHQ-9: Total score 12 11/03/22 11:57 Depression Screening Interpretation: Positive Thrive Assessment: Date of Thrive Assessment Date Thrive assessed 11/03/22 11/03/22 11:21 Currently or been in a relationship where the following occur: no concerns reported Const Other: General: no acute distress and well developed Nutritional Appearance: well nourished Orientation/consciousness: patient oriented x3 HENMT Head: Yes normocephalic and Yes atraumatic Eyes General: appearance normal, both eyes and all related structures Pupils: Equal, round and reactive pupils present EOM: EOMs intact bilaterally Resp Effort & Inspection: normal respiratory effort Auscultation: clear to auscultation bilaterally Cardio Rate: regular rate Rhythm: regular rhythm Heart sounds: S1 normal heart sound present, S2 normal heart sound present, no gallops, no murmurs and no rubs GI Palpation (GI): No Abdominal aortic bruit present, Soft to palpation, nontender, No hepatosplenomegaly present and No Rebound tenderness present Auscultation: normal bowel sounds General: Yes no CVA tenderness Back/Spine/Pelvis Back: no CVA tenderness Cervical Spine: cervical ROM normal and No Cervical spine tenderness Thoracic/Lumbar Spine: thoraco-lumbar ROM normal, No pain with thoraco-lumbar ROM, No thoracic spinal tenderness and No lumbar spinal tenderness Extrem General: Yes normal to inspection, No edema and No calf tenderness Skin General: warm and dry. Normal skin color. Normal skin turgor Lesions: no lesions Rashes: Two, small raised rash noted to the left upper chest proximal to the axilla, no drainage or overt infection Trauma: no lacerations or abrasions Wounds: no wounds Nails: normal Neuro General: patient oriented x3, gait normal and no focal neuro deficit Cranial nerves: Yes Equal, round and reactive pupils present Cognition (Neuro): normal cognition Gait exam (Neuro): Normal gait present Motor exam (neuro): 5/5 motor strength present throughout Sensory Exam: No Sensory deficit (Neuro) Deep tendon reflexes (DTR's): Right patellar reflex intensity grade: 2+ and Left patellar reflex intensity grade: 2+ Psych Appearance: grossly normal Affect: normal affect Attitude: cooperative Thought process: Normal thought process present Assessment and Plan Assessment & Plan (1) Anxiety and depression: Code(s): F41.9 - Anxiety disorder, unspecified; F32.A - Depression, unspecified Plan: PHQ-9 and ISABEL-7 scores revealed moderate depression and anxiety Fluoxetine ordered. Take as prescribed Routine exercise encouraged Referral made to the community navigator to assist the patient connect to a therapist Follow-up in 1 month or return sooner with worsening or new symptoms Verbalized understanding and agreed with treatment plan (2) Hidradenitis suppurativa: Code(s): L73.2 - Hidradenitis suppurativa Plan: Reports hydradenitis suppurativa for which she takes Humira. She states the rash usually occur in her armpits, groins, genitals, and buttocks. She currently has two small rash in her left armpit. Two, small raised rash noted to the left upper chest proximal to the axilla, no drainage or overt infection Continue to follow Dermatology as planned Return with worsening or new signs and symptoms Verbalized understanding and agreed with treatment plan. (3) Laboratory tests ordered as part of a complete physical exam (CPE): Code(s): Z00.00 - Encounter for general adult medical examination without abnormal findings Plan: Fasting labs ordered as part of a complete physical exam. Advised to fast for at least 10 hours before getting labs drawn. May drink water Verbalized understanding and agreed with treatment plan. Orders: Orders Comprehensive [place]. Panel Fast Today Z00.00 - Encounter for general adult medical examination without abnormal findings Lipid Panel Today Z00.00 - Encounter for general adult medical examination without abnormal findings TSH reflex Free T4 Today Z00.00 - Encounter for general adult medical examination without abnormal findings Complete Blood Count Auto Diff Today Z00.00 - Encounter for general adult medical examination without abnormal findings UA CC w/rflx Micro + Cult Today Z00.00 - Encounter for general adult medical examination without abnormal findings Referrals Nurse Navigator Referral F32.A - Depression, unspecified, F41.9 - Anxiety disorder, unspecified Medications: New fluoxetine 20 mg PO DAILY 30 caps 3RF 30 days Coding Level of Care Code New Pt Level 3 (09851) Diagnoses Anxiety and depression F41.9; F32.A Hidradenitis suppurativa L73.2 Laboratory tests ordered as part of a complete physical exam (CPE) Z00.00 Additional Codes ISABEL-7 Assessment Billing - ISABEL-7 Assessment Tool: ISABEL-7 Assessment 98227 ([id number])
[2022-11-03 11:10] VITALS: BP 130/74; PULSE 110; O2SAT 98; BMI 39.5
== END 2022-11-03 12:08 | disposition home or self-care (01) ==
PROVIDERS: PCP Nurse Practitioner Family; Visit Provider Nurse Practitioner Family
DX: F41.9 Anxiety disorder, unspecified (principal); F32.A Depression, unspecified; L73.2 Hidradenitis suppurativa
CPT/HCPCS: 96127; 99203

== ENCOUNTER 2022-11-03 12:10 | Outpatient (REF) | payer OTHER, SELFPAY ==
[2022-11-03 14:29] LABS: MANUAL DIFF FLAG NO
[2022-11-03 14:33] LABS: Basophils Percent Auto 0.5 % (0-2); Eosinophils Absolute Auto 0.3 X10*3/uL (0.0-0.4); Eosinophils Percent Auto 3.4 % (0-4); Hematocrit 44.8 % (37.0-47.0); Hemoglobin 15.2 g/dl (12.0-16.0); Imm Gran Abs Auto 0.03 X10*3/uL (0.00-0.03); Imm Gran Pct Auto 0.4 % (0.0-0.4); Lymphocytes Absolute Auto 2.5 X10*3/uL (1.2-4.9); Lymphocytes Percent Auto 29.7 % (20-40); Mean Corpuscular HGB Conc 33.9 g/dl (31.0-35.0); Mean Corpuscular Hemoglobin 29.3 pg (27.0-33.0); Mean Corpuscular Volume 86.5 fL (80.0-98.0); Mean Platelet Volume 10.4 fL (9.4-12.3); Monocytes Absolute Auto 0.6 X10*3/uL (0.1-1.2); Monocytes Percent Auto 7.1 % (2-11); Neutrophils Absolute Auto 4.9 x10*3/uL (2.0-8.3); Neutrophils Percent Auto 58.9 % (45-73); Platelet Count 318 X10*3/uL (160-400); Red Blood Count 5.18 X10*6/uL (4.20-5.50); Red Cell Distribution Width 12.9 % (11.0-16.0); White Blood Count 8.3 X10*3/uL (4.8-10.8)
[2022-11-03 14:50] LABS: Alanine Aminotransferase 34 U/L (0-31); Albumin Level 4.3 g/dL (3.5-5.0); Alkaline Phosphatase 84 U/L (39-117); Anion Gap 16 (12-20); Aspartate Amino Transferase 21 U/L (5-31); Bilirubin Total 0.8 mg/dL (0.0-1.0); Blood Urea Nitrogen 10 mg/dL (9-16); Calcium 9.9 mg/dL (8.4-10.2); Carbon Dioxide 20 mmol/L (22-29); Chloride 108 mmol/L (96-108); Cholesterol 215 mg/dL; Estimated Glomerular Filt Rate > 60; Glucose Fasting 97 mg/dL (60-99); HDL Cholesterol 45 mg/dL; LDL Cholesterol Calculated 153 mg/dl; Potassium 3.9 mmol/L (3.3-5.1); Sodium 140 mmol/L (135-145); Total Protein 7.6 g/dL (6.5-8.0); Triglycerides 89 mg/dL
[2022-11-03 15:04] LABS: TSH reflex Free T4 0.76 uIU/mL (0.32-4.0)
[2022-11-03 15:13] LABS: Appearance Urine Cloudy; Color Urine Yellow; Glucose Urine UA Negative (Negative); Leukocyte Esterase Urine Small (1+) (Negative); Nitrite Urine Negative (Negative); PH 5.5 (5.0-9.0); UMIC TRIGGER UACC YES; Urine Blood Small (1+) (Negative); Urine Ketones Trace mg/dL (Negative); Urine Protein Trace mg/dL (Neg-Trace)
[2022-11-03 15:25] LABS: Bacteria Urine None Seen (None Seen); Hyaline Casts Urine 0-2 /LPF (0-2); RBC Urine 0-2 /HPF (0-2); Squamous Epithelial Cell Urine >20 /HPF (0-2); UACC Culture Trigger YES
== END 2022-11-03 12:11 | disposition home or self-care (01) ==
LOC: HO.WFDLDS 12:10
PROVIDERS: Visit Provider Nurse Practitioner Family
DX: Z00.00 Encounter for general adult medical examination without abnormal findings (principal); R82.90 Unspecified abnormal findings in urine
CPT/HCPCS: 36415; 80053; 80061; 81001; 81003; 84443; 85025; 87086

== ENCOUNTER 2022-12-20 12:21 | Outpatient (AMB) | payer OTHER, SELFPAY ==
[2022-12-20 12:27] VITALS: BP 118/78; PULSE 100; RESP 20; TEMP 36.7; O2SAT 97; BMI 39.3
--- NOTE | 2022-12-20 12:27 | MHC.PC.OV ---
Vital Signs 12/20/22 12:27 Height 5 ft 8 in Weight 258 lb 4 oz BMI 39.3 BP 118/78 Blood Pressure Location Rt brachial Position Sitting Respiration 20 Pulse 100 Pulse Source Pulse Oximeter Temp 98.0 F Temp Source Oral Pulse Oximetry (%) 97 Intake Visit Reasons: 1 mos anxiety/depression Intake Note: Patient is here for follow up on anxiety and depression. Patient states medication Fluoxetine makes her feel like a Zombie. Allergies sulfamethoxazole [From Bactrim] Allergy (Verified 12/20/22 12:49) Hives trimethoprim [From Bactrim] Allergy (Verified 12/20/22 12:49) Hives Medication List - Last Reconciled 12/20/22 by Siomara Solorzano CNP adalimumab 40 mg subcut QWEEK fluoxetine 20 mg PO DAILY 30 days Tobacco use date assessed: 12/20/22 HPI HPI Comments History of Present Illness Details 22-year-old female presents for anxiety and depression follow-up. She established care a month ago and was prescribed fluoxetine. She notes the medication makes her feels like a zombie. She notes that the medication was working too well. She states her cousin and she was unable to cry. She states she felt more numb on the medication. She stopped taking the medication 2 weeks ago and her symptoms have increased. She notes she notes she is currently on a wait list for a therapist. 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 1. Little interest or pleasure in doing things: several days 2. Feeling down, depressed, or hopeless: more than half the days 3. Trouble falling or staying asleep, or sleeping too much: nearly every day 4. Feeling tired or having little energy: nearly every day 5. Poor appetite or overeating: nearly every day 6. Feeling bad about yourself - or that you are a failure or have let yourself or your family down: more than half the days 7. Trouble concentrating on things, such as reading the newspaper or watching television: more than half the days 8. Moving or speaking so slowly that other people could have noticed. Or the opposite - being so fidgety or restless that you have been moving around a lot more than usual: more than half the days 9. Thoughts that you would be better off or of hurting yourself in some way: not at all Total score: 18 Depression Screening Interpretation: Positive Depression Screening Follow-up: Existing condition, In treatment and Change in Medication Source: Developed by Drs. Franck Chandler, Meeta Maldonado, Nitin Ordoñez and colleagues, with an educational eugenio from [employer]. Thrive Questionnaire Date Thrive assessed: 11/03/22 ISABEL-7 AMB Questionnaire ISABEL-7 Date ISABEL - 7 assessed: 12/20/22 Feeling nervous, anxious, or on edge: 2 = More than half the days Not being able to stop or control worryin = Nearly every day Worrying too much about different things: 2 = More than half the days Trouble relaxin = More than half the days Being so restless that it is hard to sit still: 2 = More than half the days Becoming easily annoyed or irritable: 3 = Nearly every day Feeling afraid as if something awful might happen: 0 = Not at all Total ISABEL-7 score (0-4 normal; 5-9 mild; 10-14 moderate; 15-21 severe): 14 Source: Developed by Drs. Franck Chandler, Meeta Maldonado, Nitin Ordoñez and colleagues, with an educational eugenio from [employer]. Review of Systems Const Details: Const Denies chills, Denies fatigue, Denies fever(s), Denies headache(s) and Denies weakness ENT Denies dizziness and Denies headache(s) Card Denies chest pain, Denies lightheadedness, Denies dyspnea and Denies other (Palpitations) Resp Denies cough, Denies dyspnea, Denies wheezing and Denies other ( shortness of breath) GI Denies abdominal pain, Denies melena, Denies hematochezia, Denies change in bowel habits, Denies dyspepsia and Denies nausea Denies hematuria and Denies dysuria Musc Denies abnormal gait, Denies myalgias, Denies arthralgias, Denies numbness and Denies tingling Skin/Breast Denies rash, Denies unusual bruising and Denies wounds Neuro Denies abnormal gait, Denies dizziness, Denies headache(s), Denies memory loss, Denies numbness, Denies Sensory deficit (Neuro), Denies tingling and Denies weakness Psych Denies anxiety, Denies depression, Denies memory loss Endo Denies cold intolerance, Denies fatigue, Denies heat intolerance, Denies polydipsia and Denies polyuria Aller/Immun Denies wheezing Physical exam (Primary Care) Vital Signs: Last Vital Signs Temp 98.0 F 12/20/22 12:27 Pulse 100 12/20/22 12:27 Resp 20 12/20/22 12:27 BP 118/78 12/20/22 12:27 Pulse Ox 97 12/20/22 12:27 BMI result Body Mass Index 39.3 Tobacco/Smoking Status: Tobacco use Status Tobacco use date assessed 12/20/22 12/20/22 12:38 Patient Tobacco Use Status Never used Tobacco 12/20/22 12:38 e-Cigarette/Vaping Use Never Used 12/20/22 12:38 PHQ-9: PHQ-9 Score PHQ-9: Total score 18 12/20/22 12:38 Depression Screening Interpretation: Positive Depression Screening Follow-up: Existing condition, In treatment and Change in Medication Thrive Assessment: Date of Thrive Assessment Date Thrive assessed 11/03/22 12/20/22 12:38 Const Other: General: no acute distress and well developed Nutritional Appearance: well nourished Orientation/consciousness: patient oriented x3 HENMT Head: Yes normocephalic and Yes atraumatic Eyes General: appearance normal, both eyes and all related structures Pupils: Equal, round and reactive pupils present EOM: EOMs intact bilaterally Resp Effort & Inspection: normal respiratory effort Auscultation: clear to auscultation bilaterally Cardio Rate: regular rate Rhythm: regular rhythm Heart sounds: S1 normal heart sound present, S2 normal heart sound present, no gallops, no murmurs and no rubs GI Palpation (GI): No Abdominal aortic bruit present, Soft to palpation, nontender, No hepatosplenomegaly present and No Rebound tenderness present Auscultation: normal bowel sounds General: Yes no CVA tenderness Back/Spine/Pelvis Back: no CVA tenderness Cervical Spine: cervical ROM normal and No Cervical spine tenderness Thoracic/Lumbar Spine: thoraco-lumbar ROM normal, No pain with thoraco-lumbar ROM, No thoracic spinal tenderness and No lumbar spinal tenderness Extrem General: Yes normal to inspection, No edema and No calf tenderness Skin General: warm and dry. Normal skin color. Normal skin turgor Lesions: no lesions Rashes: no rashes Trauma: no lacerations or abrasions Wounds: no wounds Nails: normal Neuro General: patient oriented x3, gait normal and no focal neuro deficit Cranial nerves: Yes Equal, round and reactive pupils present Cognition (Neuro): normal cognition Gait exam (Neuro): Normal gait present Sensory Exam: No Sensory deficit (Neuro) Psych Appearance: grossly normal Affect: normal affect Attitude: cooperative Thought process: Normal thought process present Assessment and Plan Assessment & Plan (1) Anxiety and depression: Code(s): F41.9 - Anxiety disorder, unspecified; F32.A - Depression, unspecified Plan: PHQ-9 and ISABEL-7 scores revealed moderately severe depression and moderate anxiety respectively SSRI including fluoxetine and sertraline have not been effective Wellbutrin ordered. Take as prescribed Routine exercise encouraged She is on a wait list for cognitive be overall therapy Follow-up in 1 month or return sooner with worsening or new symptoms Verbalized understanding and agreed with treatment plan. (2) Hypercholesterolemia: Code(s): E78.00 - Pure hypercholesterolemia, unspecified Plan: Recent lab results reviewed with the patient; unremarkable except slightly elevated total cholesterol and LDL levels Advised to limit foods high in saturated fat and avoid foods high trans fat Routine exercise encouraged Verbalized understanding and agreed with treatment plan. Medications: New bupropion HCl (Wellbutrin SR) 150 mg PO QAM 30 tabs 2RF 30 days Discontinued fluoxetine Discontinued Reason: Doctor's Order 20 mg PO DAILY 30 caps 3RF 30 days Coding Level of Care Code Est Pt Level 3 (58544) Diagnoses Anxiety and depression F41.9; F32.A Hypercholesterolemia E78.00
== END 2022-12-20 13:06 | disposition home or self-care (01) ==
PROVIDERS: PCP Nurse Practitioner Family; Visit Provider Nurse Practitioner Family
DX: F41.9 Anxiety disorder, unspecified (principal); F32.A Depression, unspecified; E78.00 Pure hypercholesterolemia, unspecified
CPT/HCPCS: 99213

== ENCOUNTER 2023-05-04 07:59 | Outpatient (AMB) | payer OTHER, SELFPAY ==
[2023-05-04 08:12] VITALS: BP 124/76; PULSE 79; O2SAT 97; BMI 39.1
--- NOTE | 2023-05-04 08:12 | MHC.PC.OV ---
Vital Signs 05/04/23 08:12 Height 5 ft 8 in Weight 257 lb BMI 39.1 BP 124/76 Blood Pressure Location Lt brachial Position Sitting Pulse 79 Pulse Source Pulse Oximeter Pulse Oximetry (%) 97 Oxygen Delivery Method Room Air Intake Visit Reasons: follow up anxiety and depression Intake Note: Patient is here to follow up on anxiety and depression today. Allergies sulfamethoxazole [From Bactrim] Allergy (Verified 05/04/23 08:22) Hives trimethoprim [From Bactrim] Allergy (Verified 05/04/23 08:22) Hives Medication List - Last Reconciled 05/04/23 by Siomara Solorzano CNP adalimumab 40 mg subcut QWEEK bupropion HCl (Wellbutrin SR) 150 mg PO QAM 30 days Tobacco use date assessed: 05/04/23 Dental Screening Dental Screen Date: 05/04/23 HPI HPI Comments History of Present Illness Details 22-year-old female presents for anxiety and depression follow-up She is bupropion 150 mg daily. She admits to taking her medications as prescribed without adverse reactions She reports improved anxiety and depression symptoms. She notes improved sleep and energy. She is able to get a lot of things done She offers no complaints and denies acute symptoms at this time [facility] Medical History Mood disorder Hidradenitis suppurativa Surgical History S/P wisdom tooth extraction Family History Father Substance abuse Mother Hypothyroidism Social History Household Members: Significant Other Housing: House Do you presently have visiting nurse or other home services: No Alcohol intake: current Alcohol intake frequency: a few times a month Alcohol type: beer Patient Tobacco Use Status: Never used Tobacco e-Cigarette/Vaping Use: Never Used service: No Current occupational status: employed 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 1. Little interest or pleasure in doing things: several days 2. Feeling down, depressed, or hopeless: several days 3. Trouble falling or staying asleep, or sleeping too much: not at all 4. Feeling tired or having little energy: several days 5. Poor appetite or overeating: several days 6. Feeling bad about yourself - or that you are a failure or have let yourself or your family down: not at all 7. Trouble concentrating on things, such as reading the newspaper or watching television: not at all 8. Moving or speaking so slowly that other people could have noticed. Or the opposite - being so fidgety or restless that you have been moving around a lot more than usual: several days 9. Thoughts that you would be better off or of hurting yourself in some way: not at all Total score: 5 Source: Developed by Drs. Franck Chandler, Meeta Maldonado, Nitin Ordoñez and colleagues, with an educational eugenio from [employer]. Thrive Questionnaire Date Thrive assessed: 11/03/22 ISABEL-7 AMB Questionnaire ISABEL-7 Date ISABEL - 7 assessed: 05/04/23 Feeling nervous, anxious, or on edge: 1 = Several days Not being able to stop or control worryin = Several days Worrying too much about different things: 1 = Several days Trouble relaxin = Several days Being so restless that it is hard to sit still: 1 = Several days Becoming easily annoyed or irritable: 2 = More than half the days Feeling afraid as if something awful might happen: 0 = Not at all Total ISABEL-7 score (0-4 normal; 5-9 mild; 10-14 moderate; 15-21 severe): 7 Source: Developed by Drs. Franck Chandler, Meeta Maldonado, Nitin Ordoñez and colleagues, with an educational eugenio from [employer]. Review of Systems Const Details: Const Denies chills, Denies fatigue, Denies fever(s), Denies headache(s) and Denies weakness ENT Denies dizziness and Denies headache(s) Card Denies chest pain, Denies lightheadedness, Denies dyspnea and Denies other (Palpitations) Resp Denies cough, Denies dyspnea, Denies wheezing and Denies other ( shortness of breath) GI Denies abdominal pain, Denies melena, Denies hematochezia, Denies change in bowel habits, Denies dyspepsia and Denies nausea Denies hematuria and Denies dysuria Musc Denies abnormal gait, Denies myalgias, Denies arthralgias, Denies numbness and Denies tingling Skin/Breast Denies rash, Denies unusual bruising and Denies wounds Neuro Denies abnormal gait, Denies dizziness, Denies headache(s), Denies memory loss, Denies numbness, Denies Sensory deficit (Neuro), Denies tingling and Denies weakness Psych Denies anxiety, Denies depression, Denies memory loss Endo Denies cold intolerance, Denies fatigue, Denies heat intolerance, Denies polydipsia and Denies polyuria Aller/Immun Denies wheezing Physical exam (Primary Care) BMI result Body Mass Index 39.1 Tobacco/Smoking Status: Tobacco use Status Tobacco use date assessed 12/20/22 05/02/23 08:48 Patient Tobacco Use Status Never used Tobacco 05/02/23 08:48 e-Cigarette/Vaping Use Never Used 05/02/23 08:48 Thrive Assessment: Date of Thrive Assessment Date Thrive assessed 11/03/22 05/02/23 08:48 Const Other: General: no acute distress and well developed Nutritional Appearance: well nourished Orientation/consciousness: patient oriented x3 HENMT Head: Yes normocephalic and Yes atraumatic Eyes General: appearance normal, both eyes and all related structures Pupils: Equal, round and reactive pupils present EOM: EOMs intact bilaterally Resp Effort & Inspection: normal respiratory effort Auscultation: clear to auscultation bilaterally Cardio Rate: regular rate Rhythm: regular rhythm Heart sounds: S1 normal heart sound present, S2 normal heart sound present, no gallops, no murmurs and no rubs GI Palpation (GI): No Abdominal aortic bruit present, Soft to palpation, nontender, No hepatosplenomegaly present and No Rebound tenderness present Auscultation: normal bowel sounds General: Yes no CVA tenderness Back/Spine/Pelvis Back: no CVA tenderness Cervical Spine: cervical ROM normal and No Cervical spine tenderness Thoracic/Lumbar Spine: thoraco-lumbar ROM normal, No pain with thoraco-lumbar ROM, No thoracic spinal tenderness and No lumbar spinal tenderness Extrem General: Yes normal to inspection, No edema and No calf tenderness Skin General: warm and dry. Normal skin color. Normal skin turgor Neuro General: patient oriented x3, gait normal and no focal neuro deficit Cranial nerves: Yes Equal, round and reactive pupils present Cognition (Neuro): normal cognition Gait exam (Neuro): Normal gait present Sensory Exam: No Sensory deficit (Neuro) Psych Appearance: grossly normal Affect: normal affect Attitude: cooperative Thought process: Normal thought process present Assessment and Plan Assessment & Plan (1) Anxiety and depression: Code(s): F41.9 - Anxiety disorder, unspecified; F32.A - Depression, unspecified Plan: PHQ-9 and ISABEL-7 scores revealed mild depression and anxiety Continue to take Wellbutrin as prescribed Routine exercise encouraged Follow-up in 1 month for an extended physical exam or return sooner with worsening or new symptoms Verbalized understanding and agreed with treatment plan Coding Level of Care Code Est Pt Level 3 (20635) Diagnoses Anxiety and depression F41.9; F32.A
== END 2023-05-04 08:27 | disposition home or self-care (01) ==
PROVIDERS: PCP Nurse Practitioner Family; Visit Provider Nurse Practitioner Family
DX: F41.9 Anxiety disorder, unspecified (principal); F32.A Depression, unspecified
CPT/HCPCS: 99213

== ENCOUNTER → 2023-08-02 13:18 | Outpatient (BNVA) | payer OTHER, SELFPAY | PROVIDERS: PCP Nurse Practitioner Family; Visit Provider Physician Assistant Medical | DX: Z13.89 Encounter for screening for other disorder (principal) | CPT/HCPCS: 99202 ==

== ENCOUNTER → 2023-08-07 11:23 | Outpatient (BNVA) | payer OTHER, SELFPAY | PROVIDERS: PCP Nurse Practitioner Family; Visit Provider Physician Assistant Medical | DX: Z13.89 Encounter for screening for other disorder (principal) | CPT/HCPCS: 99213 ==

== ENCOUNTER → 2023-08-13 09:29 | Outpatient (BNVA) | payer OTHER, SELFPAY | PROVIDERS: PCP Nurse Practitioner Family; Visit Provider Physician Assistant Medical | DX: Z13.89 Encounter for screening for other disorder (principal) | CPT/HCPCS: 99213 ==

== ENCOUNTER → 2023-08-28 11:17 | Outpatient (BNVA) | payer OTHER, SELFPAY | PROVIDERS: PCP Nurse Practitioner Family; Visit Provider Physician Assistant Medical | DX: Z13.89 Encounter for screening for other disorder (principal) | CPT/HCPCS: 99213 ==

== ENCOUNTER 2023-10-01 10:00 | Outpatient (RCR) | payer OTHER, SELFPAY ==
--- NOTE | 2023-08-21 16:12 | MHC.PT.EP ---
[facility] [place] Office [place] Office [place] Office [address] Angelina Camarillo [address] [phone] F: [phone] F: [phone] F: [phone] F: [phone] Physical Therapy Plan of Care Date of Evaluation: 08/21/23 Date of Surgery: Diagnosis: LEFT CERVICAL/ TRAPEZIUS STRAIN Assessment: 23 YO FEMALE REF TO PT W Lt CERV/ UT STRAIN SUSTAINED AT WORK ON 08/02/23, AFTER BEING IN A CONFLICT BETWEEN 2 IN-PTs. SHE WORKS FULL-TIME AN RN ON AN IN-PT UNIT AND IS CURRENTLY WORKING LIGHT DUTY 8-12 HR SHIFTS IN THE T ROOM. THE Pt IS Rt HAND DOMINANT. OBJECTIVELY, SHE HAS SIGNIF CERV AND Lt SH AROM DEF, (+) SOFT TISSUE GUARDING, DECR ADL YARELY, DECR POSTURAL AWARENESS, MILD STRENGTH DEFICITS IN HER POST RC/ SCAP MM, AND FLUCTUATING PAIN IN HER Lt CERV/Lt UT MM W INTERMITTENT RADIC SXS INTO HER Lt HAND. SHE IS MOTIVATED TO RTW AND WOULD BENEFIT FROM PT TO ADDRESS HER CERVICAL AND Lt POST RC SXS. Frequency and Duration: The patient will be seen 2 x WK x 4 WKS Short Term Goals: *DECR Lt CERV AND UT PAIN TO 2-3/10 *Pt INDEP W SELF CORRECT POSTURE IN VARIED TASKS *IMPROVE CERV AND Lt SH AROM *INITIATE HEP Teleprinter Goals: *Pt INDEP HEP AND SELF SX MGMT TECHN *Pt RTW REG DUTY AND RESUME HER REG ADLs W/O Lt CERV /UE SXS *IMPROVED NPDI (AT EVAL 32/50) AND SPADI (82/130 AT EVAL) *IMPROVED SLEEP Treatment Plan: Modalities to reduce pain, spasms and effusion. Manual therapy to restore motion and function. Therapeutic exercise to improve strength and flexibility. Neuromuscular re-education for posture and balance. Therapeutic activities to return to functional activities of daily living. Electronically signed by: IMAN ORLANDO,PT Please sign and return to therapist. Thank you for your referral.
== END 2024-01-31 15:13 | disposition home or self-care (01) ==
LOC: HO.PT 10:00
PROVIDERS: PCP Nurse Practitioner Family; Visit Provider Physician Assistant Medical
DX: S13.4XXD Sprain of ligaments of cervical spine, subsequent encounter (principal)
CPT/HCPCS: 97035; 97110; 97140; 97162

== ENCOUNTER 2024-02-07 08:01 | Outpatient (AMB) | payer OTHER, SELFPAY ==
--- NOTE | 2024-02-07 08:04 | A.OFFPC_ITS ---
Vital Signs 02/07/24 08:13 Height 5 ft 8 in Weight 257 lb 2 oz BMI 39.1 BP 126/90 H Blood Pressure Location Lt brachial Position Sitting Respiration 16 Pulse 111 H Pulse Source Pulse Oximeter Temp 98.2 F Temp Source Oral Pulse Oximetry (%) 97 Oxygen Delivery Method Room Air Intake Visit Reasons: CPE/FMLA paperwork Intake Note: patient here for CPE and FMLA paperwork Clinical Documentation Consultant Required: No Is last menstrual period known: No (she has an IUD) Post menopausal: No Patient : No Allergies sulfamethoxazole [From Bactrim] Allergy (Verified 02/07/24 08:14) Hives trimethoprim [From Bactrim] Allergy (Verified 02/07/24 08:14) Hives Medication List - Last Reconciled 02/07/24 by Siomara Solorzano CNP adalimumab 40 mg subcut QWEEK bupropion HCl SR (Wellbutrin SR) 150 mg PO QAM 30 days Tobacco use date assessed: 02/07/24 Dental Screening Dental Screen Date: 02/07/24 Did you have a dental visit in the last 12 months?: No Did you have a dental problem in the last 6 months where you did not have access to dental care?: No Was dental information given to patient?: Yes HPI HPI Comments History of Present Illness Details 23-year-old female presents for an exten ded physical exam She has past medical history significant for myopia, hypercholesterolemia, hydradenitis suppurativa, anxiety, and depression She has not taken Wellbutrin since September 2023. She is in grad school and has been busy school work and job She notes increased anxiety and depressive symptoms related to school and work stressors. She has not been sleeping will. She has no trouble falling asleep but wakes up every 2-3 hours. She sleeps an average of 5-6 hours She is not currently followed by a psychiatrist. She has history of psychotherapy. She is in the process of establishing with a therapist She generally makes healthy dietary choices. She walks her dog once weekly Nonsmoker. Drinks 1-2 beers every 2 months. No recreational drugs Last eye exam was with [facility] a year ago. She will call to schedule an appointment for an eye exam. She will sign a release for her PCP to obtain eye record Last Pap smear test was with [facility] lead software developer 2 years ago: normal. She will sign a release for her PCP to obtain python developer record Last tetanus vaccine was 2 months ago She is up-to-date on the flu vaccine She is followed by [facility]. She will sign a release for her PCP to obtain dermatology record She requests FMLA due to anxiety and depressive symptoms. Her employer encouraged her to have the FMLA documentation completed to be able to time off as needed for a mental break. The patient requests at least a day off per month [facility] Medical History (Updated 02/07/24 @ 10:05 by Elizabeth Stern MA) ADD (attention deficit disorder) History of torn meniscus of right knee Mood disorder Hidradenitis suppurativa Surgical History S/P wisdom tooth extraction Family History (Updated 02/07/24 @ 10:06 by Elizabeth Stern MA) Father Substance abuse FH: HTN (hypertension) Diabetes ADD (attention deficit disorder) Obesity Alcohol abuse Mother Hypothyroidism Depression FH: HTN (hypertension) HLD (hyperlipidemia) Mental health problem Social History Household Members: Significant Other Housing: House Do you presently have visiting nurse or other home services: No Alcohol intake: current Alcohol intake frequency: a few times a month Alcohol type: beer Patient Tobacco Use Status: Never used Tobacco e-Cigarette/Vaping Use: Never Used service: No Current occupational status: employed 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 1. Little interest or pleasure in doing things: more than half the days 2. Feeling down, depressed, or hopeless: more than half the days 3. Trouble falling or staying asleep, or sleeping too much: nearly every day 4. Feeling tired or having little energy: nearly every day 5. Poor appetite or overeating: more than half the days 6. Feeling bad about yourself - or that you are a failure or have let yourself or your family down: several days 7. Trouble concentrating on things, such as reading the newspaper or watching television: several days 8. Moving or speaking so slowly that other people could have noticed. Or the opposite - being so fidgety or restless that you have been moving around a lot more than usual: not at all 9. Thoughts that you would be better off or of hurting yourself in some way: not at all Total score: 14 Depression Screening Interpretation: Positive Depression Screening Follow-up: Existing condition Depression Screening Done: Yes 66187 - PHQ-9 Billing: Yes Source: Developed by Drs. Franck Chandler, Meeta Maldonado, Nitin Ordoñez and colleagues, with an educational eugenio from [employer]. Thrive Questionnaire Date Thrive assessed: 02/07/24 I am a: Patient What is your living situation today?: I have a steady place to live Within the past 12 months, did the food you bought not last and you didn't have the money to get more?: Never true Within the past 12 months, did you worry whether your food would run out before you got money to buy more?: Never true Do you have trouble paying for medicines?: No Do you have trouble getting transportation to medical appointments?: No Do you have trouble paying your heating and electricity bill?: No Do you have trouble taking care of your child, family member or friend?: No Do you have trouble with day-to-day activities such as bathing, preparing meals, shopping, managing finances, etc.?: No Are you currently unemployed and looking for a job?: No Are you interested in more education?: No Please select the resources that you would like help with: None Currently or been in a relationship where the following occur: No concerns reported THRIVE Score: 0 AUDIT C Alcohol Use Questionnaire (AUDIT-C) 1. How often do you have a drink containing alcohol?: Monthly or less Total Score: 1 Score Reviewed/Action Taken: Yes ISABEL-7 AMB Questionnaire ISABEL-7 Date ISABEL - 7 assessed: 02/07/24 Feeling nervous, anxious, or on edge: 1 = Several days Not being able to stop or control worryin = Several days Worrying too much about different things: 2 = More than half the days Trouble relaxin = More than half the days Being so restless that it is hard to sit still: 1 = Several days Becoming easily annoyed or irritable: 3 = Nearly every day Feeling afraid as if something awful might happen: 1 = Several days Total ISABEL-7 score (0-4 normal; 5-9 mild; 10-14 moderate; 15-21 severe): 11 Source: Developed by Drs. Franck Chandler, Meeta Maldonado, Nitin Ordoñez and colleagues, with an educational eugenio from [employer]. ISABEL-7 Assessment Billing ISABEL-7 Assessment Tool: ISABEL-7 Assessment 11843 Review of Systems Const Details: Denies chills, Denies fatigue, Denies fever(s), Denies headache(s) and Denies weakness HEENT Denies change in vision, Denies dizziness, Denies headache(s), Denies hearing loss, Denies nasal congestion, Denies sinus pain, Denies sinus pressure and Denies sore throat Card Denies chest pain, Denies lightheadedness, Denies dyspnea and Denies other (palpitations) Resp Denies cough, Denies dyspnea and Denies wheezing GI Denies abdominal pain, Denies melena, Denies hematochezia, Denies change in bowel habits, Denies dyspepsia and Denies nausea Denies hematuria and Denies dysuria Musc Denies abnormal gait, Denies myalgias, Denies arthralgias, Denies numbness and Denies tingling Skin/Breast Denies rash, Denies unusual bruising and Denies wounds Neuro Denies abnormal gait, Denies dizziness, Denies headache(s), Denies memory loss, Denies numbness, Denies Sensory deficit (Neuro), Denies tingling and Denies weakness Psych Reports anxiety, Reports depression and Denies memory loss Endo Denies cold intolerance, Denies fatigue, Denies heat intolerance, Denies polydipsia and Denies polyuria Evin/Lymph Denies easy bleeding and Denies easy bruising Aller/Immun Denies wheezing Physical exam (Primary Care) Vital Signs: Last Vital Signs Temp 98.2 F 02/07/24 08:13 Pulse 111 H 02/07/24 08:13 Resp 16 02/07/24 08:13 BP 126/90 H 02/07/24 08:13 Pulse Ox 97 02/07/24 08:13 Oxygen Delivery Method Room Air 02/07/24 08:13 BMI result Body Mass Index 39.1 Tobacco/Smoking Status: Tobacco use Status Tobacco use date assessed 02/07/24 02/07/24 08:12 Patient Tobacco Use Status Never used Tobacco 02/07/24 08:08 e-Cigarette/Vaping Use Never Used 02/07/24 08:08 PHQ-9: PHQ-9 Score PHQ-9: Total score 14 02/07/24 09:12 Depression Screening Interpretation: Positive Depression Screening Follow-up: Existing condition Thrive Assessment: Date of Thrive Assessment Date Thrive assessed 02/07/24 02/07/24 08:08 Currently or been in a relationship where the following occur: No concerns reported Const Other: General: no acute distress, well developed, alert and awake Nutritional Appearance: well nourished Orientation/consciousness: patient oriented x3 HENMT Head: Yes normocephalic and Yes atraumatic Ears: hearing grossly normal bilaterally and TM's normal bilaterally General nose exam: Normal external nose present and Normal nares present Mouth: Normal oral and palatal mucosa present and moist mucous membranes Teeth and gingiva: dentition normal Throat: Yes oropharynx normal Eyes Pupils: Equal, round and reactive pupils present and Pupil accommodation reflex normal EOM: EOMs intact bilaterally Neck Neck: Yes normal visual inspection, Yes no lymphadenopathy and Yes trachea midline Thyroid: Thyroid normal Carotids: no bruits Lymphatic: no lymphadenopathy noted Chest Chest palpation & inspection: normal inspection of the chest Resp Effort & Inspection: normal respiratory effort Auscultation: clear to auscultation bilaterally Cardio Rate: regular rate Rhythm: regular rhythm Heart sounds: S1 normal heart sound present, S2 normal heart sound present, no gallops, no murmurs and no rubs Bruits: no abdominal aortic bruits and no carotid bruits GI Palpation (GI): No Abdominal aortic bruit present, Soft to palpation, nontender, No hepatosplenomegaly present and No Rebound tenderness present Auscultation: normal bowel sounds General: Yes no CVA tenderness Back/Spine/Pelvis Back: no CVA tenderness Cervical Spine: cervical ROM normal and No Cervical spine tenderness Thoracic/Lumbar Spine: thoraco-lumbar ROM normal, No pain with thoraco-lumbar ROM, No thoracic spinal tenderness and No lumbar spinal tenderness Skin General: warm and dry. Normal skin color. Normal skin turgor Lesions: no lesions Rashes: no rashes Trauma: no lacerations or abrasions Wounds: no wounds Nails: normal Neuro General: patient oriented x3, gait normal and CN's II-XI intact bilaterally Cranial nerves: Yes Equal, round and reactive pupils present Cognition (Neuro): normal cognition Gait exam (Neuro): Normal gait present Motor exam (neuro): 5/5 motor strength present throughout Sensory Exam: No Sensory deficit (Neuro) Deep tendon reflexes (DTR's): Right patellar reflex intensity grade: 2+ and Left patellar reflex intensity grade: 2+ Extrem General: Yes normal to inspection, No edema and No calf tenderness Psych Appearance: grossly normal Affect: normal affect Attitude: cooperative Thought process: Normal thought process present Coding Level of Care Code Tele New Pt Level 3 (74512) Est Pt Prev Care 18-39y(57391) Diagnoses Normal physical examination, routine Z00.00 Anxiety and depression F41.9; F32.A Hidradenitis suppurativa L73.2 Obesity (BMI 30-39.9) E66.9 Additional Codes ISABEL-7 Assessment Billing - ISABEL-7 Assessment Tool: ISABEL-7 Assessment 12281 ([id number]) PHQ-9 - 33275 - PHQ-9 Billing: Yes ([id number]) Assessment & Plan Assessment & Plan (1) Normal physical examination, routine: Code(s): Z00.00 - Encounter for general adult medical examination without abnormal findings Category: Medical Plan: No significant functional limitation noted Continue current treatment regimen Healthy diet and routine exercise encouraged Advised to schedule an appointment with a dentist for routine dental care Encouraged to get lab work done and follow-up in 2 weeks for labs review, anxiety, and depression or sooner with symptoms or concerns Verbalized understanding and agreed with the treatment plan (2) Anxiety and depression: Code(s): F41.9 - Anxiety disorder, unspecified; F32.A - Depression, unspecified Category: Medical Plan: Reports increased anxiety and depressive symptoms related to work and school stressors. She does not have trouble falling asleep but her sleep is interrupted. She sleeps an average 5-6 hours. She has not been able to follow- up with her PCP for several months and has not taking bupropion for the past 5 months because she ran out of refills. She requests [place] documentation for a mental break as needed PHQ-9 and ISABEL-7 score reveals moderate depression and anxiety Will restart bupropion 150 mg daily. Advised to take as prescribed. Instructed on the risks, benefits, and potential adverse reactions of the medication Routine exercise encouraged Will sign FMLA documentation today Follow-up in 2 weeks or sooner with worsening or new symptoms Verbalized understanding and agreed with the plan (3) Hidradenitis suppurativa: Code(s): L73.2 - Hidradenitis suppurativa Category: Medical Plan: Followed by Dermatology (4) Obesity (BMI 30-39.9): Code(s): E66.9 - Obesity, unspecified Category: Medical Plan: She currently weighs 257 lb, BMI is 39.1 She generally makes healthy lifestyle choices and walks her dog once a week Healthy diet and routine exercise encouraged She is willing to be referred to a dietitian. Referral made to [facility] [place] dietitian Follow-up with symptoms or concerns Verbalized understanding and agreed with treatment plan Orders: Orders Complete Blood Count Auto Diff Today Z00.00 - Encounter for general adult medical examination without abnormal findings Lipid Panel Today Z00.00 - Encounter for general adult medical examination without abnormal findings TSH reflex Free T4 Today Z00.00 - Encounter for general adult medical examination without abnormal findings Comprehensive [place]. Panel Fast Today Z00.00 - Encounter for general adult medical examination without abnormal findings UA CC w/rflx Micro + Cult Today Z00.00 - Encounter for general adult medical examination without abnormal findings Referrals Nutrition/Dietitian Referral E66.9 - Obesity, unspecified Medications: Refilled bupropion HCl SR (Wellbutrin SR) 150 mg PO QAM 30 days 30 tabs 3RF
[2024-02-07 08:13] VITALS: BP 126/90; PULSE 111; RESP 16; TEMP 36.8; O2SAT 97; BMI 39.1
== END 2024-02-07 08:46 | disposition home or self-care (01) ==
LOC: HO.HMCFM 08:02
PROVIDERS: PCP Nurse Practitioner Family; Visit Provider Nurse Practitioner Family
DX: Z00.00 Encounter for general adult medical examination without abnormal findings (principal); F41.9 Anxiety disorder, unspecified; E66.9 Obesity, unspecified; Z68.39 Body mass index [BMI] 39.0-39.9, adult; F32.A Depression, unspecified; L73.2 Hidradenitis suppurativa

== ENCOUNTER → 2024-02-07 08:01 | Outpatient (BNVA) | payer OTHER, SELFPAY | PROVIDERS: PCP Nurse Practitioner Family; Visit Provider Nurse Practitioner Family | DX: Z00.00 Encounter for general adult medical examination without abnormal findings (principal); F41.9 Anxiety disorder, unspecified; F32.A Depression, unspecified; L73.2 Hidradenitis suppurativa; E66.9 Obesity, unspecified; Z68.39 Body mass index [BMI] 39.0-39.9, adult | CPT/HCPCS: 96127 ==

== ENCOUNTER 2024-02-07 08:55 | Outpatient (REF) | payer OTHER, SELFPAY ==
[2024-02-07 11:10] LABS: MANUAL DIFF FLAG NO
[2024-02-07 11:30] LABS: Basophils Absolute Auto 0.1 X10*3/uL (0.0-0.2); Basophils Percent Auto 0.7 % (0-2); Eosinophils Absolute Auto 0.1 X10*3/uL (0.0-0.4); Eosinophils Percent Auto 1.3 % (0-4); Hematocrit 43.4 % (37.0-47.0); Hemoglobin 14.8 g/dl (12.0-16.0); Imm Gran Abs Auto 0.03 X10*3/uL (0.00-0.03); Imm Gran Pct Auto 0.4 % (0.0-0.4); Lymphocytes Absolute Auto 1.9 X10*3/uL (1.2-4.9); Lymphocytes Percent Auto 25.4 % (20-40); Mean Corpuscular HGB Conc 34.1 g/dl (31.0-35.0); Mean Corpuscular Hemoglobin 28.8 pg (27.0-33.0); Mean Corpuscular Volume 84.4 fL (80.0-98.0); Mean Platelet Volume 10.4 fL (9.4-12.3); Monocytes Absolute Auto 0.4 X10*3/uL (0.1-1.2); Monocytes Percent Auto 5.3 % (2-11); Neutrophils Percent Auto 66.9 % (45-73); Platelet Count 288 X10*3/uL (160-400); Red Blood Count 5.14 X10*6/uL (4.20-5.50); White Blood Count 7.4 X10*3/uL (4.8-10.8)
[2024-02-07 11:31] LABS: Appearance Urine Clear; Color Urine Yellow; Glucose Urine UA Negative (Negative); Leukocyte Esterase Urine Negative (Negative); Nitrite Urine Negative (Negative); Urine Blood Negative (Negative); Urine Ketones Negative (Negative); Urine Protein Negative (Neg-Trace)
[2024-02-07 12:05] LABS: Alanine Aminotransferase 26 U/L (0-31); Albumin Level 4.3 g/dL (3.5-5.0); Alkaline Phosphatase 102 U/L (39-117); Anion Gap 14 (12-20); Aspartate Amino Transferase 26 U/L (5-31); Bilirubin Total 0.6 mg/dL (0.0-1.0); Blood Urea Nitrogen 14 mg/dL (9-16); Calcium 10.3 mg/dL (8.4-10.2); Carbon Dioxide 22 mmol/L (22-29); Chloride 108 mmol/L (96-108); Cholesterol 212 mg/dL (<200); Estimated Glomerular Filt Rate > 60; Glucose Fasting 111 mg/dL (60-99); HDL Cholesterol 49 mg/dL (>40); LDL Cholesterol Calculated 148 mg/dL (<100); Potassium 4.1 mmol/L (3.3-5.1); Sodium 140 mmol/L (135-145); Total Protein 7.5 g/dL (6.5-8.0); Triglycerides 78 mg/dL (<150)
[2024-02-07 12:25] LABS: TSH reflex Free T4 1.44 uIU/mL (0.32-4.0)
== END 2024-02-07 08:56 | disposition home or self-care (01) ==
LOC: HO.WFDLDS 08:55
PROVIDERS: Visit Provider Nurse Practitioner Family
DX: Z00.00 Encounter for general adult medical examination without abnormal findings (principal)
CPT/HCPCS: 36415; 80053; 80061; 81003; 84443; 85025

== ENCOUNTER 2024-10-11 20:32 | Emergency (ER) | payer OTHER, SELFPAY ==
--- NOTE | ~2024-10-11 | XR_ITS ---
CLINICAL HISTORY: cough x 2 days 2 view chest x-ray. Comparison: None provided. Findings: No consolidation, pneumothorax, or effusion. Heart size normal. Impression: 1. No acute cardiopulmonary process. No focal pulmonary consolidation. This document has been electronically signed by: Michel Beltrán MD on 10/11/2024 22:31:05
[2024-10-11 20:49] VITALS: BP 148/88; PULSE 123; RESP 22; TEMP 36.8; O2SAT 95; BMI 34.4
--- NOTE | 2024-10-11 20:50 | ED_ITS ---
HPI - URI/Sore Throat General Chief Complaint: Upper Respiratory Symptoms Stated Complaint: cold symptoms/sob Time Seen by Provider: 10/11/24 21:29 Source: patient Limitations: no limitations History of Present Illness ED Provider: Daniela Moreno PA-C HPI Narrative: 24-year-old female with a history of mood disorder and ADD presents with cough and cold symptoms x1 week. Associated nasal congestion, cough no wheezing chest congestion and short of breath. Associated subjective fever and chills. Denies history of asthma Related Data Home Medications ?Medication ?Instructions ?Recorded ?Confirmed adalimumab 40 mg/0.4 mL 40 mg subcut QWEEK 11/03/22 02/07/24 subcutaneous pen kit Previous Rx's ?Medication ?Instructions ?Recorded bupropion HCl 150 mg tablet,12 hr 150 mg PO QAM 30 day s #30 tabs 02/07/24 sustained-release (Wellbutrin SR) Allergies Allergy/AdvReac Type Severity Reaction Status Date / Time sulfamethoxazole (From Allergy Hives Verified 10/11/24 20:49 Bactrim) trimethoprim (From Bactrim) Allergy Hives Verified 10/11/24 20:49 Review of Systems Review of Systems: Yes all other systems are reviewed and are negative Constitutional: Constitutional: Reports chills, Reports fatigue, Reports fever(s) and Reports malaise ENT: Reports nasal congestion Cardiovascular: Cardiovascular: Denies chest pain and Reports dyspnea Respiratory: Respiratory: Reports chest congestion, Reports cough and Reports dyspnea Endocrine: Endocrine: Reports fatigue PMFSH Past Medical History Attestation statement: The following information was validated with the patient. Medical History (Updated 10/12/24 @ 00:00 by Margueirte Rodriguez) ADD (attention deficit disorder) History of torn meniscus of right knee Mood disorder Hidradenitis suppurativa Surgical History S/P wisdom tooth extraction Family History Family History (Updated 02/07/24 @ 10:06 by Elizabeth Stern MA) Father Substance abuse FH: HTN (hypertension) Diabetes ADD (attention deficit disorder) Obesity Alcohol abuse Mother Hypothyroidism Depression FH: HTN (hypertension) HLD (hyperlipidemia) Mental health problem Social History Social History Household Members: Significant Other Housing: House Do you presently have visiting nurse or other home services: No Alcohol intake: current Alcohol intake frequency: a few times a month Alcohol type: beer Patient Tobacco Use Status: Never used Tobacco Smoked in Last 30 Days: No e-Cigarette/Vaping Use: Never Used Use of substances other than those prescribed or required for medical reasons: No Advance Directives: No Advance Directives Information Provided: Yes Patient : No service: No Current occupational status: employed 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 Current occupational exposures/hazards: No Cognitive needs: No Hearing needs: No Vision needs: Yes Physical Exam Vital Signs: Vital Signs: Last Vital Signs Temp 98.1 F 10/11/24 23:08 Pulse 91 10/11/24 23:08 Resp 20 10/11/24 23:08 BP 131/81 10/11/24 23:08 Pulse Ox 92 10/11/24 23:08 O2 Del Method Room Air 10/11/24 23:08 BMI result Body Mass Index 34.4 Const: Other: Alert well-appearing Orientation/consciousness: patient oriented x3 HEENT: Other: Sounds congested Resp: Other: Lungs clear to auscultation no wheezing Cardio: Other: Normal peripheral perfusion Skin: Other: Warm dry no rash Neuro: General: patient oriented x3, gait normal, no focal motor deficits and CN's II-XI intact bilaterally Psych: Other: Cooperative Course Course Course Narrative: This is a RME preformed in triage by Vnadana Guerrero PA-C. Date: 10/11/24, time 854 pm. Patient presents with URI sxs two days. Patient has a cough discharge over the last 2 days. She is without any history of asthma but does have seasonal allergies. She takes antihistamine once a day but not regularly. She has been afebrile but chills yesterday. [facility] today. She received a DuoNeb and was given prednisone 50 mg. She was also given him inhaler in at home prednisone to take. We will brought her into the ED tinnitus she has a smart watch and it told her oxygen saturation was around 91-92 and it has never been that way before this made her anxious so she decided seek medical attention here. Not have any imaging done. She denies any GI symptoms no headache or dizziness no paresthesias or weakness no symptoms. PE: Patient is well hydrated no respiratory distress saturating 100% on room air. There is no indication of a middle or external ear infection SKILLED NURSING score is 0 testing for strep not indicated. Her lungs are clear to auscultation bilaterally bronchial protocol not placed. Work UP: CXR and repeat COVID/FLU. Will defer full ROS and PE to treating provider. Patient will continued to be monitored in the interim. Medical Decision Making Medical Decision Making MDM Narrative: 24-year-old female with a history of mood disorder and ADD presents with cough and cold symptoms x1 week. Associated nasal congestion, cough no wheezing chest congestion and short of breath. Associated subjective fever and chills. Denies history of asthma No underlying chronic issues History: Per patient I have considered the following differential diagnoses: Viral syndrome, pneumonia, reactive airway, bronchitis Plan: Has x-ray and viral panel ordered from triage everything is negative. We will send with home care instructions I have independently reviewed the following tests: Viral panel negative, chest x-ray: view chest x-ray. Comparison: None provided. Findings: No consolidation, pneumothorax, or effusion. Heart size normal. Impression: 1. No acute cardiopulmonary process. No focal pulmonary consolidation. Lab Data Labs: Lab Results 10/11/24 Range/Units 21:04 Influenza Type A (PCR) NEGATIVE (Negative) Influenza Type B (PCR) NEGATIVE (Negative) RSV RNA Qual (PCR) NEGATIVE (Negative) SARS-CoV-2 RNA (RT-PCR) NEGATIVE (Negative) Discharge Plan Discharge Clinical Impression: Acute viral syndrome Patient Disposition: Home, Self-Care Instructions: Viral Syndrome (ED) Additional Instructions: You were screened for influenza COVID and RSV the viral panel was negative. The chest x-ray is clear you do not have a pneumonia. You have yet another respiratory virus has been circulating within the community. See home care instructions. Pcxf-lpu-dbonjdn nasal saline sprays can help with nasal conges tion. Tild-mut-bcumrpv Mucinex can help with chest congestion. Follow up with primary care as needed. Prescriptions: No Action adalimumab 40 mg/0.4 mL pen injector kit 40 mg subcut QWEEK Rx Instructions: sunday bupropion HCl [Wellbutrin SR] 150 mg tablet sustained-release 12 hr 150 mg PO QAM 30 Days Qty: 30 3RF Interventions: ED Discharge Assessment Last Done: 10/11/24 23:08 Discharge Date/Time: 10/11/24 23:09 Print Language: Croatian
--- OUTSIDE RECORDS SUMMARY | 2024-10-11 21:10 | XMS_ITS | Data Portability ---
Author Organization [facility], [address] Address [address] [place] [address] Care Team Providers Care Manufacturing Industrial Engineer Name Role Phone [facility] Primary Care Radha lazcano Assessment No assessment recorded. Plan of Treatment Reminders Order Date Submit Date Provider Last Modified By Organization Details Last Modified Time Details Appointments None recorded. Lab rapid flu (A+B) 2022 023 [facility] [address] [place], [place] [address], [address] [place], [address], 3 08:45:27 rapid strep group A, throat 2022 023 [facility] [address] [place] [address], [address] [place], [address], 3 08:45:27 streptococc us group A, culture, throat 2022 023 [facility], [address] [place] [address], [place], [address], 3 08:08:09 Referral None recorded. Procedures None recorded. Surgeries None recorded. Imaging None recorded. Medication Orders amoxicillin 875 mg tablet 2022 023 [id number], [address] [place], [address], 3 08:45:32 prednisone 20 mg tablet 2022 023 [facility] [address] [place], [address], 08:45:32 Patient TargetsNo targets recorded. Patient Instructions Encounter Date Encounter Id Patient Instructions Last Modified By Organization Details Last Modified Time 08/27/2022 [id number] cough: care instructions [email or web address] Not available 08/27/2022 08:45:27 Discussed potential complications and intervention options with the patient during this visit. Patient was instructed to increase room humidity and eat soft bland foods. Raising the head of the bed, lozenges, and saline nasal spray were also recommended. Patient may take ibuprofen or acetaminophen as needed for pain control. If the issue does not improve in 24-48 hours, patient should return to the clinic for follow-up. You have been prescribed an antibiotic for your bacterial illness. While antibiotics are sometimes necessary, they can have a negative impact upon the healthy bacteria within your body. This can result in diarrhea/loose stools and yeast infections. By taking probiotics during the course of your prescription, you can lessen the probability of these undesirable side effects. Probiotics can be purchased [id number]-[id number] at your pharmacy in the form of capsules or gummies. They are also found naturally in yogurt with live cultures. Mix salt into a quarter-glass of warm water and stir until no more salt will dissolve. Gargle and spit out the salt water mixture one mouthful at a time until the glass is empty. Repeat 4 times daily. Hand hygiene is a gill measure for preventing spread to others, especially after coughing or sneezing and before preparing foods or eating, and we remind all patients of its importance. Please discard of your current tooth brush and get a new one after being on the antibiotic for 3-4 days to prevent reinfection. You are considered contagious until you have the antibiotic for 24 hours. We have sent out for lab results, typically take 3-5 days to return. [email or web address] Not available 08/27/2022 08:45:25 Reason for Referral None Reported. Results Created Date Observation Date Name Description Value Unit Range Abnormal Flag Note LastModifiedBy Organization Detail LastModifiedTime 08/28/19 23 08/30/2022 BETA STREP GP A CULTU RE beta strep gp A culture NEGATI VE Refer ence Range : Negat merlene Not Available [facility] ([facility]) [address] [facility], [place], [address], 08/30/2022 08:08:08 08/28/19 23 08/27/2022 rapid flu (A+B) Unknown Analyte Normal = Negati ve Not Available [address] [place], [address], 08/27/2022 08:18:22 08/28/19 23 08/27/2022 rapid flu (A+B) Unknown Analyte negati ve Not Available [facility] [address] [place], [address], 08/27/2022 08:18:22 08/28/19 23 08/27/2022 rapid flu (A+B) Unknown Analyte Normal = Negati ve Not Available [facility] [address] [place], [address], 08/27/2022 08:18:22 08/28/19 23 08/27/2022 rapid flu (A+B) Unknown Analyte negati ve Not Available [address] [place], [address], 08/27/2022 08:18:22 08/28/19 23 08/27/2022 rapid strep group A, throa t Unknown Analyte Normal = Negati ve Not Available [address] [place], [address], 08/27/2022 08:18:33 08/28/1908/27/2022 rapid strep group A, throa t Unknown Analyte negati ve Not Available [address] [place], [address], 08/27/2022 08:18:33 Result Notes None recorded. Problems Name Problem SNOMED Code Status Onset Date Resolution Date Notes Provider Name and Address Organization Details Recorded Time Anxiety 03016135 Active 2022 SEAMUS PRASANNA null, PA - [facility] 3 08:12:46 Hidradenitis suppurativa 29060461 Active 2022 SEAMUS DRINKSANTHOSHE null, PA - [facility] 3 08:13:31 Problem Notes None recorded. Procedures Surgical History Date Name Laterality Status Provider Name and Address Organization Details Recorded Time extraction of wisdom tooth completed SEAMUSSarah Beth POZOE PA - [facility] 08/27/2022 08:14:51 Imaging Results None recorded. Procedure Notes None recorded. Medical Equipment None Reported. Allergies Allergen ID Allergen Name Allergen Category Reaction Reaction Severity Criticality Documentation Date Start Date Code Code System Note Provider Name and Address Organization Details Recorded Time 060594 Bactrim medicatio n hives Not available Not available 08/27/2022 21548 9 RxNorm SEAMUS POZOE null, PA - [facility] 3 08:12:05 Medications Name Sig Start Date Stop Date Status Note LastModified by Organization Details LastModified Time prednisone 20 mg tablet Take 2 tablets every day by oral route in the morning for 3 days. 2022 active Not Available Not Available Not Avai lable amoxicillin 875 mg tablet Take 1 tablet every 12 hours by oral route with meals for 10 days. 2022 active Not Available Not Available Not Avai lable sertraline 25 mg tablet TAKE 1 TABLET BY MOUTH EVERY DAY 08/27 completed Not Available Not Available Not Available sertraline 50 mg tablet TAKE 1 TABLET BY MOUTH EVERY DAY active Not Available Not Available No t Available Humira active Not Available Not Availa ble Not Available Liletta 20.4 mcg/24 hr (up to 8 years) 52 mg intrauterine device active Not Available Not Available Not Available Vitals Date Recorded Body height Body mass index (BMI) Body weight Body temperature Respiratory rate Heart rate Oxygen saturation Oxygen saturation in Arterial blood by Pulse oximetry Systolic And Diastolic Provider Name and Address Organization Details Last Updated DateTime 3 172.72 cm 38 kg/m2 566943. 09 g 98.7 [degF] 18 /min 110 /min 99 % 99 % 130/82 mm[Hg] SEAMUS NOHELIAE PA - [facility] 08:18:02 Social History Question Answer Notes LastModified by Organizat ion Details LastModified Time Tobacco Smoking Status Never Smoker SEAMUS smith PA - [facility] 08/27/2022 08:15:04 Have You Recently Traveled Abroad? No Information not available 08/27/2022 Sex: Unknown Functional Status Question Answer Note LastModified by Organizat ion Details LastModified Time Do you use any illicit or recreational drugs? No Information not available 08/27/2022 Do you or have you ever used any other forms of tobacco or nicotine? No Information not available 08/27/2022 Mental Status None recorded. Family History Relationship Description Onset Age of this Age Resolved Age Notes LastModified by Organization Details LastModified Time Mother Disorder of thyroid gland [email or web address] Not available 08/27 08:14:33 Medical History No medical history recorded. Gynecological History Statement/Question Response LMP N/A Obstetrics History GPAL:G 0 P 0 0 0 0 Past Encounters Encounter ID Performer Location Encounter Start Date Encounter Closed Date Diagnosis/Indication Diagnosis SNOMED-CT Code Diagnosis ICD10 Code Diagnosis Note [id number] [place] [address] 02/09/2019 19:22:46 02/09/2019 19:50:48 [id number] [address] [place] [address] 08/10/2019 10:01:18 08/10/2019 11:44:06 [id number] [id number] [address] [address] 10/06/2021 08:07:38 10/06/2021 09:16:41 [id number] [address] 01/04/2022 13:50:19 01/04/2022 14:54:19 [id number] [place] [id number] [place] [address] 08/27/2022 08:05:31 08/27/2022 08:49:24 Streptococcal sore throat 87674186 J02.0 Health Concerns Section Related Observation LastModified by Organization Detai ls LastModified Time None Recorded Concern Status LastModified by Organization Details LastModified Time None Recorded Advance Directives Directive None Recorded Payers Insurance Date Sequence Insurance Name Policy Number Policy Cintron Covered Member ID Cintron Member ID Guarantor Name 10/10/2022 1 [facility] [id number] Camille Rondon Adela [id number] Camille Nela Chapman 10/10/2022 1 [facility] [id number] Camille Rodgersnier [id number] Camille Rondon Adela Notes Date Note Type Note Provider Name and Address Organization Details Recorded Time text/html Sinus Complaints UCReported bypatient.Location:sinus pain;facial pain;sinus pressure Associated Symptoms:no fever; no nausea or vomiting; no sore throat; no ear fullness; no nasal itching; no eye itching; no dizziness;difficulty breathing;Post nasal drip;nasal passage blockage;cough Onset/Timing:worse in am; worse in pm Quality:minimal discomfort;worsening; clear Duration:frequent Severity:moderate Context:no recent upper respiratory infection; no recent sick contacts; not worse with seasonal allergen exposure;worse with environmental exposure Risk Factors:no current smoking or tobacco use; no history of nasal trauma Alleviating factors:oral steroids Aggravating factors:worse during an upper respiratory infection (a cold); worse with excess fatigue Prior Treatmentoral decongestantSore throatReported bypatient.Source of patient informationInformation obtained from patient; Patient arrived at Urgent Care ambulatory; learning styles: auditory Location:throat Severity:mild Quality:sharp; burning Onset/Timin days Associated Symptoms:no sputum production; no shortness of breath; no wheezing; no vomiting; no nausea;sore throat;hoarseness;coughing; sinus pain/ congestion Context:no foreign travel; non-smoker;sick contact Modifying Factors:exposed to Strep non household Xu Dell, [employer] [address] [place], [address], [place] - [facility] 08/27/2022 08:46:32 OBGyn Episode No OBEpisode recorded.
[2024-10-11 21:58] LABS: Resp Syncy Virus RNA Qual PCR NEGATIVE (Negative); SARS COV2 PCR INHOUSE NEGATIVE (Negative)
[2024-10-11 22:59] VITALS: BP 131/81; PULSE 91; RESP 20; TEMP 36.7; O2SAT 92
[2024-10-11 23:08] VITALS: BP 131/81; PULSE 91; RESP 20; TEMP 36.7; O2SAT 92
== END 2024-10-11 23:09 | disposition home or self-care (01) ==
PROVIDERS: Physician Assistant Medical; Emergency Provider Emergency Medicine; PCP Nurse Practitioner Family
DX: B34.9 Viral infection, unspecified (principal); R05.9 Cough, unspecified; R09.81 Nasal congestion; Z03.818 Encounter for observation for suspected exposure to other biological agents ruled out
CPT/HCPCS: 71046; 87637; 99283; 99284

== ENCOUNTER → 2024-10-11 20:56 | Outpatient (BNV) | payer OTHER, SELFPAY | PROVIDERS: Emergency Provider Emergency Medicine; PCP Nurse Practitioner Family; Visit Provider Radiology Diagnostic Radiology | DX: R05.3 Chronic cough (principal) | CPT/HCPCS: 71046 ==

== ENCOUNTER 2024-12-18 14:00 | Outpatient (REF) | payer OTHER, SELFPAY ==
[2024-12-18 17:41] LABS: Magnesium 2.3 mg/dL (1.6-2.6)
[2024-12-18 18:03] LABS: Folate 6.2 ng/mL (> or = 4.0); Vitamin B12 1044 pg/mL (200-900)
== END 2024-12-18 14:01 | disposition home or self-care (01) ==
LOC: HO.LAB 14:00
PROVIDERS: PCP Nurse Practitioner Family; Visit Provider Clinical Nurse Specialist Psychiatric/Mental Health
DX: F41.1 Generalized anxiety disorder (principal); F41.0 Panic disorder [episodic paroxysmal anxiety]; E55.9 Vitamin D deficiency, unspecified
CPT/HCPCS: 36415; 82306; 82607; 82746; 83735; 84207; 84443; 90792

== ENCOUNTER 2024-12-18 14:00 | Outpatient (AMB) | payer OTHER, SELFPAY ==
--- NOTE | 2024-12-18 14:45 | MHC.OFFVISPS ---
Intake Intake Visit Reasons: consult Branch Lending Officer Required: No Allergies sulfamethoxazole (From Bactrim) Allergy (Verified 10/11/24 20:49) Hives trimethoprim (From Bactrim) Allergy (Verified 10/11/24 20:49) Hives Medication List - Last Reconciled 01/15/25 by Nae Olson APRN adalimumab 40 mg subcut QWEEK clonidine HCl 0.1 mg PO BID guanfacine ER (Intuniv ER) 1 mg PO QPM lorazepam (Ativan) 0.5 mg PO DAILY PRN HPI- Psychiatric Chief Complaint: consult HPI Narrative: pt seen for Bridge appointment due to increase in panic and anxiety over past 2 weeks; She is unaware of any particular triggers. Pt has a long histroy of anxiety, including social anxiety, sleeping lightly, worrying, avoiding anxiety provoking situations such as social events, making calls, and keven pre- shift anxiety. For a long time, She has been able to manage these symptoms quite well overall; she has tried 2 SSRIs and wellbutrin. She has a history of possible ADHD symptoms since childhood although no treatment in childhood. She has long history of trouble sustaining attention, focus, finishing tasks, and frequent procrastination. Pt reports her brother was diagnosed with ADHD as child but had more acting out. Pt had similar difficulties with attention and focus but never got treatment as child. She describes the anxiety as being characterized by increased heart rate, pit in stomach, tremulous, feeling hot, stuttering, and feeling something bad will happen. Recently she had a episode of panic where she also had a a sense of being out of her body. She has no histroy of manic episode. she has trouble sleeping and low energy. She finds it hard to settle down at night. PHQ9= 17 and GAD7= 19. Past Psychiatric History: No IPLOC Subjective Subjective Subjective Medication Compliance: Yes Side effects from medications: No Review of Systems Medical Review of Systems: unchanged Mental Status Exam Mental Status Exam Patient Appearance: Well Grooomed and Appropriate Patient Orientation: Person, Place and Time Level of Consciousness: Awake, Appropriate and Restless Patient Behavior: Appropriate, Hyperactive (fidgety), Cooperative, Restless, Anxious and Good Eye Contact Mood Description: Cheerful and Anxious Affect Description: Cheerful and Anxious Patient Cognition Impaired: No Ability to Follow Directions: Good Speech Pattern: Clear and Rapid Memory Description: Intact Hallucinations: None Delusions: Not Present Perceptual Disturbances: Depersonalization (one episode during panic attack) Thought Process: Intact and Racing Thought Content: positive for Intact and positive for Racing Judgement: Good Assessment and Plan Assessment & Plan (1) Generalized anxiety disorder with panic attacks: Status: Acute Code(s): F41.1 - Generalized anxiety disorder; F41.0 - Panic disorder [episodic paroxysmal anxiety] Plan rule out ADHD discussed options for treatment including SSRIs, SNRIs. consider magnesium glycinate 125-250mg at bedtime consider l-theanine supplement consider adding B6 for anxiety trial of tenex ER 1 mg at bedtime for anxiety, sleep and ADHD xanax 0.5mg prn Medications: New guanfacine ER (Intuniv ER) 1 mg PO QPM 30 tabs 1RF lorazepam (Ativan) 0.5 mg PO DAILY PRN 30 tabs 0RF anxiety Orders: Orders Vitamin B12 and Folate 12/18/24 F41.1 - Generalized anxiety disorder, F41.0 - Panic disorder [episodic paroxysmal anxiety] Vitamin D 25-OH Total 12/18/24 E55.9 - Vitamin D deficiency, unspecified Magnesium 12/18/24 F41.1 - Generalized anxiety disorder, F41.0 - Panic disorder [episodic paroxysmal anxiety] TSH reflex Free T4 12/18/24 F41.1 - Generalized anxiety disorder, F41.0 - Panic disorder [episodic paroxysmal anxiety] Vitamin B6 12/18/24 F41.1 - Generalized anxiety disorder, F41.0 - Panic disorder [episodic paroxysmal anxiety] Counseling and coordination of Care Pt. Self Management counseling: Mod caffeine/ETOH intake, Sleep hygiene and General coping skills Medication management counseling: Effectiveness, Side effects, Dosing range, Duration, Drug interaction and Adherence Details-Med Mgmt counseling: stay hydrated Diagnosis and Prognosis Counseling: Accuracy of diagnosis, Prognosis over time, Impact of diagnosis on life functions, Impact of family relationship, Problematic behaviors secondary to diagnosis and Adequacy of current interventions Details: I spent 75 minutes reviewing the record, seeing the patient and documenting in the medical record. Counseling provided to the patient/caregiver as outlined below. Addressed patient/caregiver concerns regarding current medication regime including effective adherence. Addressed patient/caregiver concerns regarding diagnosis and prognosis including accuracy of diagnosis, prognosis over time, impact of diagnosis. Addressed patient/caregiver concerns regarding impact of recent stressors. [facility] Medical History (Updated 12/18/24 @ 14:56 by Nae Olson APRN) ADD (attention deficit disorder) History of torn meniscus of right knee Mood disorder Hidradenitis suppurativa Surgical History S/P wisdom tooth extraction Family History (Updated 02/07/24 @ 10:06 by Elizabeth Stern MA) Father Substance abuse FH: HTN (hypertension) Diabetes ADD (attention deficit disorder) Obesity Alcohol abuse Mother Hypothyroidism Depression FH: HTN (hypertension) HLD (hyperlipidemia) Mental health problem Social History Household Members: Significant Other Housing: House Do you presently have visiting nurse or other home services: No Alcohol intake: current Alcohol intake frequency: a few times a month Alcohol type: beer Patient Tobacco Use Status: Never used Tobacco e-Cigarette/Vaping Use: Never Used service: No Current occupational status: employed Current occupation: [employer] [place] pysch [employer] Current occupational exposures/hazards: No Cognitive needs: No Hearing needs: No Vision needs: Yes Social History: lives with significant other. works FT as RN. Substance History: none Trauma History: none Coding Level of Care Code Psych Diag Eval w/Med (89386) Diagnoses Generalized anxiety disorder with panic attacks F41.1; F41.0
== END 2024-12-18 14:58 | disposition home or self-care (01) ==
LOC: HO.HOP 14:00
PROVIDERS: PCP Nurse Practitioner Family; Visit Provider Clinical Nurse Specialist Psychiatric/Mental Health
DX: F41.1 Generalized anxiety disorder (principal); F41.0 Panic disorder [episodic paroxysmal anxiety]
CPT/HCPCS: 90792

== ENCOUNTER 2025-01-15 14:30 | Outpatient (AMB) | payer OTHER, SELFPAY ==
--- NOTE | 2025-01-15 14:38 | MHC.OFFVISPS ---
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 Pt reports tolerating the intuniv well. she recently had trial of effexor which she could not tolerate. Pt continues to have anxiet. Recently there has been more stress at her workplace. This effectedher sleep. Her PHQ9=m11 down from 17 and GAD7= 8 down from 19. She denies side effects from intuniv and thinks it hussain help a little; pt denie sdizziness, vertigo, or fainting, no headaches, no GI upset. Again pt has a history of ADHD symptoms since childhood although no treatment in childhood. She has trouble sustaining attention, focus, finishing tasks, and frequent procrastination.Pt is in grad school and having trouble with demands for attention and organiztion. The anxiety is characterized as increased heart rate, pit in stomach, tremulous, feeling hot, stuttering, and feeling something bad will happen. Recently she had a episode of panic where she also had a asense of being out of her body. She has no history of manic episode. she has trouble sleeping and low energy. Pt completed the ASRS-v1.1 Adult ADHD self report scale. She scored positively for 5 out of 6 core ADHD symptoms and 10 out of 12 for supporting symptoms for ADHD. We discussed her diagnosis of ADHD and how this can contribute to anxiety and effect her functioning. She is tolerating the intuniv and agrees to an increase. Past Psychiatric History: No IPLOC Subjective Subjective Subjective Medication Compliance: Yes Side effects from medications: No Review of Systems Medical Review of Systems: unchanged Mental Status Exam Mental Status Exam Patient Appearance: Well Grooomed and Appropriate Patient Orientation: Person, Place and Time Level of Consciousness: Awake, Appropriate and Restless Patient Behavior: Appropriate, Hyperactive (fidgety), Cooperative, Restless, Anxious and Good Eye Contact Mood Description: Cheerful and Anxious Affect Description: Cheerful and Anxious Patient Cognition Impaired: No Ability to Follow Directions: Good Speech Pattern: Clear and Rapid Memory Description: Intact Hallucinations: None Delusions: Not Present Perceptual Disturbances: Depersonalization (one episode during panic attack) Thought Process: Intact and Racing Thought Content: positive for Intact and positive for Racing Judgement: Good Results Reviewed Results Reviewed: blood work completed Magnesium normal at 2.3 B6 level high at 27.7 b12 level high at 1044 vitamin D level low at 25.4 folate level is normal at 6.2 tsh normal (on lower end ) 0.72 Assessment and Plan Assessment & Plan (1) ADD (attention deficit disorder): Status: Acute Qualifiers: Hyperactivity presence: present Attention deficit-hyperactivity disorder type: combined inattentive-hyperactive Qualified Code(s): F90.2 - Attention-deficit hyperactivity disorder, combined type Code(s): F98.8 - Other specified behavioral and emotional disorders with onset usually occurring in childhood and adolescence (2) Generalized anxiety disorder with panic attacks: Status: Acute Code(s): F41.1 - Generalized anxiety disorder; F41.0 - Panic disorder [episodic paroxysmal anxiety] Plan Rule in ADHD combined type with good impulse control increase intuniv (guanfacine ER) to 2mg at bedtime ok to take clonidine prn if no sedation or dizziness. ok to take take lorazepam prn for panic attack stay hydrated report dizziness, vertigo, syncope prescription sent Counseling and coordination of Care Pt. Self Management counselin Step program, Mod caffeine/ETOH intake, Nutrition education and improvement, Sleep hygiene and General coping skills Medication management counseling: Effectiveness, Side effects, Dosing range, Duration, Drug interaction and Adherence Details-Med Mgmt counseling: stay hydrated Diagnosis and Prognosis Counseling: Accuracy of diagnosis, Prognosis over time, Impact of diagnosis on life functions, Impact of family relationship, Problematic behaviors secondary to diagnosis and Adequacy of current interventions Details: I spent 40 minutes reviewing the record, seeing the patient and documenting in the medical record. Counseling provided to the patient/caregiver as outlined below. Addressed patient/caregiver concerns regarding current medication regime including effective adherence. Addressed patient/caregiver concerns regarding diagnosis and prognosis including accuracy of diagnosis, prognosis over time, impact of diagnosis. Addressed patient/caregiver concerns regarding impact of recent stressors. [facility] Medical History (Updated 01/26/25 @ 12:33 by Nae Olson APRN) ADD (attention deficit disorder) History of torn meniscus of right knee Mood disorder Hidradenitis suppurativa Surgical History S/P wisdom tooth extraction Family History (Updated 02/07/24 @ 10:06 by Elizabeth Stern MA) Father Substance abuse FH: HTN (hypertension) Diabetes ADD (attention deficit disorder) Obesity Alcohol abuse Mother Hypothyroidism Depression FH: HTN (hypertension) HLD (hyperlipidemia) Mental health problem Social History Household Members: Significant Other Housing: House Do you presently have visiting nurse or other home services: No Alcohol intake: current Alcohol intake frequency: a few times a month Alcohol type: beer Patient Tobacco Use Status: Never used Tobacco e-Cigarette/Vaping Use: Never Used service: No Current occupational status: employed 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
== END 2025-01-15 15:53 | disposition home or self-care (01) ==
LOC: HO.HOP 14:30
PROVIDERS: PCP Nurse Practitioner Family; Visit Provider Clinical Nurse Specialist Psychiatric/Mental Health
DX: F90.2 Attention-deficit hyperactivity disorder, combined type (principal); F41.1 Generalized anxiety disorder; F41.0 Panic disorder [episodic paroxysmal anxiety]
CPT/HCPCS: 99214

== ENCOUNTER 2025-01-29 16:25 | Emergency (ER) | payer OTHER, SELFPAY ==
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
[2025-01-29 16:33] VITALS: BP 171/96; PULSE 124; RESP 20; TEMP 37; O2SAT 98; BMI 31.3
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
[2025-01-29 16:45] LABS: MANUAL DIFF FLAG NO
[2025-01-29 16:49] LABS: Hematocrit 40.3 % (37.0-47.0); Hemoglobin 14.1 g/dl (12.0-16.0); Imm Gran Abs Auto 0.03 X10*3/uL (0.00-0.03); Imm Gran Pct Auto 0.3 % (0.0-0.4); Lymphocytes Absolute Auto 2.2 X10*3/uL (1.2-4.9); Mean Corpuscular HGB Conc 35.0 g/dl (31.0-35.0); Mean Corpuscular Hemoglobin 29.0 pg (27.0-33.0); Mean Corpuscular Volume 82.9 fL (80.0-98.0); NRBC Abs Auto 0.000 X10*3/uL (0.0-0.012); NRBC Pct Auto 0.0 /100WBC (0.0-0.2); Platelet Count 248 X10*3/uL (160-400); Red Blood Count 4.86 X10*6/uL (4.20-5.50); White Blood Count 10.1 X10*3/uL (4.8-10.8)
[2025-01-29 17:06] LABS: INTERNATIONAL NORM RATIO 1.1 (0.9-1.1); Prothrombin Time 12.4 SEC (10.9-12.4)
[2025-01-29 17:08] LABS: Alanine Aminotransferase 15 U/L (0-31); Albumin Level 4.7 g/dL (3.5-5.0); Alkaline Phosphatase 74 U/L (39-117); Anion Gap 13 (12-20); Aspartate Amino Transferase 28 U/L (5-31); Blood Urea Nitrogen 11 mg/dL (9-16); Calcium 9.4 mg/dL (8.4-10.2); Carbon Dioxide 21 mmol/L (22-29); Chloride 110 mmol/L (96-108); Creatinine Clr Calc Pharmacy 102.8; Estimated Glomerular Filt Rate > 60; Partial Thromboplastin Time 28.1 SEC (26.7-34.1); Potassium 3.8 mmol/L (3.3-5.1); Sodium 140 mmol/L (135-145); Total Protein 7.7 g/dL (6.5-8.0)
[2025-01-29] MEDS: iohexoL 350 MG/ML 100 ML INFUS..BTL IV (17:51)
[2025-01-29 19:34] VITALS: BP 124/68; PULSE 96; RESP 18; TEMP 36.6; O2SAT 98
[2025-01-29 20:25] VITALS: BP 124/68; PULSE 96; RESP 18; TEMP 36.6; O2SAT 98
== END 2025-01-29 20:35 | disposition home or self-care (01) ==
PROVIDERS: Physician Assistant; Emergency Provider Emergency Medicine; PCP Nurse Practitioner Family
DX: S39.91XA Unspecified injury of abdomen, initial encounter (principal); Y04.2XXA Assault by strike against or bumped into by another person, initial encounter; Y93.9 Activity, unspecified; Y92.9 Unspecified place or not applicable
CPT/HCPCS: 36415; 71260; 74177; 80053; 84702; 85025; 85610; 85730; 96374; 99284; 99285; J1885; Q9967

== ENCOUNTER → 2025-01-29 16:36 | Outpatient (BNV) | payer OTHER, SELFPAY | PROVIDERS: Emergency Provider Emergency Medicine; PCP Nurse Practitioner Family; Visit Provider Radiology Diagnostic Radiology | DX: S39.91XA Unspecified injury of abdomen, initial encounter (principal); R10.817 Generalized abdominal tenderness; Y04.8XXA Assault by other bodily force, initial encounter | CPT/HCPCS: 71260; 74177 ==

== ENCOUNTER → 2025-01-30 10:54 | Outpatient (BNVA) | payer OTHER, SELFPAY | PROVIDERS: PCP Nurse Practitioner Family; Visit Provider Physician Assistant | DX: Z13.89 Encounter for screening for other disorder (principal) | CPT/HCPCS: 99213 ==

== ENCOUNTER → 2025-02-02 10:08 | Outpatient (BNVA) | payer OTHER, SELFPAY | PROVIDERS: PCP Nurse Practitioner Family; Visit Provider Physician Assistant Medical | DX: Z13.89 Encounter for screening for other disorder (principal) | CPT/HCPCS: 99213 ==

== ENCOUNTER → 2025-02-04 10:23 | Outpatient (BNVA) | payer OTHER, SELFPAY | PROVIDERS: PCP Nurse Practitioner Family; Visit Provider Physician Assistant | DX: Z13.89 Encounter for screening for other disorder (principal) | CPT/HCPCS: 99213 ==

== ENCOUNTER 2025-02-09 10:05 | Outpatient (AMB) | payer OTHER, SELFPAY ==
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
[2025-02-09 10:33] VITALS: BP 114/69; PULSE 92; RESP 16; TEMP 36.6; O2SAT 92; BMI 31.5
== END 2025-02-09 11:05 | disposition home or self-care (01) ==
LOC: HO.HMCFM 10:06
PROVIDERS: PCP Nurse Practitioner Family; Visit Provider Nurse Practitioner Family
DX: Z00.00 Encounter for general adult medical examination without abnormal findings (principal); F41.8 Other specified anxiety disorders; E55.9 Vitamin D deficiency, unspecified

== ENCOUNTER 2025-02-09 10:05 | Outpatient (REF) | payer OTHER, SELFPAY ==
[2025-02-09 14:39] LABS: Appearance Urine Clear; Glucose Urine UA Negative (Negative); PH 6.0 (5.0-9.0); Specific Gravity - Urine 1.015 (1.005-1.025); UMIC TRIGGER UACC YES
[2025-02-09 15:00] LABS: Cholesterol 190 mg/dL (<200); HDL Cholesterol 43 mg/dL (>40); Triglycerides 73 mg/dL (<150)
[2025-02-09 15:17] LABS: Microalbum/Creatinine Ratio Ur 4.8 ug/mg cr (<30)
== END 2025-02-09 10:06 | disposition home or self-care (01) ==
LOC: HO.WFDLDS 10:05
PROVIDERS: PCP Nurse Practitioner Family; Visit Provider Nurse Practitioner Family
DX: Z00.00 Encounter for general adult medical examination without abnormal findings (principal); Z12.4 Encounter for screening for malignant neoplasm of cervix; F41.1 Generalized anxiety disorder; F41.0 Panic disorder [episodic paroxysmal anxiety]; E55.9 Vitamin D deficiency, unspecified
CPT/HCPCS: 36415; 80061; 81001; 82043; 82570; 96127

== ENCOUNTER → 2025-02-13 10:04 | Outpatient (BNVA) | payer OTHER, SELFPAY | PROVIDERS: PCP Nurse Practitioner Family; Visit Provider Physician Assistant | DX: Z13.89 Encounter for screening for other disorder (principal) | CPT/HCPCS: 99213 ==